=== PATIENT | male | born 1970 | race Asian ===

== ENCOUNTER 2016-07-12 21:21 | Inpatient (IN) | payer MEDICARE, OTHER ==
[~2016-07-12] VITALS: Ht 154.9 cm; Wt 56.6 kg
[~2016-07-12 21:21] MED LIST: CYAN250010 PO; FOLI1 PO; LEVO100 PO; SECU150S SQ
[2016-07-12 22:08] LABS: EOSINOPHILS % (AUTO) 2.1 % (1.0-6.0); HEMATOCRIT 44.7 % (41-53); HEMOGLOBIN 15.1 g/dL (13.5-17.5); LYMPHOCYTES % (AUTO) 29.2 % (22.0-44.0); MEAN CORPUSCULAR HEMOGLOBIN 34.4 pg (26.0-34.0); MEAN CORPUSCULAR HGB CONC 33.8 G/dL (31.0-37.0); MEAN CORPUSCULAR VOLUME 102 fL (80-100); MONOCYTES # (AUTO) 0.5 K/uL (0.1-1.0); MONOCYTES % (AUTO) 7.6 % (2.0-9.0); NEUTROPHILS # (AUTO) 4.1 K/uL (1.8-7.7); NEUTROPHILS % (AUTO) 60.1 % (40.0-70.0); PLATELET COUNT (AUTO) 176 K/uL (150-450); RED BLOOD CELL COUNT(AUTO) 4.38 MIL/uL (4.50-5.90); RED CELL DISTRIBUTION WIDTH 13.4 % (11.5-14.5); WHITE BLOOD COUNT (AUTO) 6.7 K/uL (4.5-11.0)
[2016-07-12 22:16] LABS: ANION GAP 8 mmol/L (8-16); CARBON DIOXIDE 29 mmol/L (22-29); CHLORIDE 102 mmol/L (98-107); CREATININE 1.35 mg/dL (0.60-1.30); GLOMERULAR FILTR. RATE CALC 56 mL/min (>60); POTASSIUM 3.8 mmol/L (3.5-5.1); SODIUM SERUM 139 mmol/L (136-145); UREA NITROGEN, BLOOD 16 mg/dL (7-18)
[2016-07-12 22:19] LABS: PROTHROMBIN TIME 10.4 SEC (9.4-11.6)
[2016-07-12 22:26] LABS: RBC MORPHOLOGY COMMENT ABNORMAL RBC MORPH
[2016-07-12 22:41] LABS: ALANINE AMINOTRANSFERASE 22 U/L (12-78); ALBUMIN 3.3 g/dL (3.4-5.0); ASPARTATE AMINOTRANSFERASE 23 U/L (15-37); B-TYPE NATRIURETIC PEPTIDE 21 pg/mL (0-100); BILIRUBIN,TOTAL 0.5 mg/dL (0.1-1.0); CREATINE KINASE MB 0.7 ng/mL (0-5); CREATINE KINASE, TOTAL 79 U/L (39-308); TOTAL PROTEIN, SERUM 7.8 g/dL (6.4-8.2)
[2016-07-13] VITALS (7 sets, daily range): BP systolic 93–116; BP diastolic 55–86
[2016-07-13] MEDS ORDERED: ACETAMINOPHEN 325 MG TABLET PO PRN (04:15)
[2016-07-13] MEDS ORDERED: ONDANSETRON HCL 4 MG/2 ML VIAL IVP PRN (04:15)
[2016-07-13] MEDS ORDERED: 0.9% SODIUM CHLORIDE 10 ML SYRINGE IVP PRN (04:15)
[2016-07-13] MEDS ORDERED: SESTAMIBI TC99M/UD ISOTOPE 1 EA INJ INJ ONE (09:10)
[2016-07-13] MEDS ORDERED: REGADENOSON 0.4 MG/5 ML PF SYRINGE IVP ONE ×2 (09:13→12:00)
[2016-07-13] MEDS: NITROGLYCERIN 2% (1 GM=INCH) PACKET TP SCH ×2 (10:27→15:56)
[2016-07-13] MEDS: ASPIRIN 81 MG EC TABLET PO SCH (10:27)
[2016-07-13] MEDS: PRAVASTATIN SODIUM 20 MG TABLET PO SCH (10:27)
[2016-07-13] MEDS ORDERED: METOPROLOL SUCCINATE 25 MG ER TABLET PO SCH (21:00)
[2016-07-14 00:05] VITALS: BP 93/54
[2016-07-14] MEDS: HEPARIN SODIUM,PORCINE 5,000 UNITS/ML VIAL SQ SCH ×2 (03:27→09:17)
[2016-07-14 06:02] VITALS: BP 105/58
[2016-07-14 06:29] LABS: BASOPHILS % (AUTO) 0.9 % (0.0-2.0); EOSINOPHILS % (AUTO) 1.9 % (1.0-6.0); HEMATOCRIT 43.8 % (41-53); HEMOGLOBIN 14.7 g/dL (13.5-17.5); LYMPHOCYTES # (AUTO) 2.3 K/uL (1.0-4.8); LYMPHOCYTES % (AUTO) 39.9 % (22.0-44.0); MEAN CORPUSCULAR HEMOGLOBIN 34.4 pg (26.0-34.0); MEAN CORPUSCULAR HGB CONC 33.5 G/dL (31.0-37.0); MEAN CORPUSCULAR VOLUME 103 fL (80-100); MONOCYTES # (AUTO) 0.5 K/uL (0.1-1.0); MONOCYTES % (AUTO) 8.1 % (2.0-9.0); NEUTROPHILS # (AUTO) 2.8 K/uL (1.8-7.7); NEUTROPHILS % (AUTO) 49.2 % (40.0-70.0); PLATELET COUNT (AUTO) 164 K/uL (150-450); RED BLOOD CELL COUNT(AUTO) 4.27 MIL/uL (4.50-5.90); RED CELL DISTRIBUTION WIDTH 13.6 % (11.5-14.5); WHITE BLOOD COUNT (AUTO) 5.7 K/uL (4.5-11.0)
[2016-07-14 06:44] LABS: ALANINE AMINOTRANSFERASE 21 U/L (12-78); ANION GAP 5 mmol/L (8-16); ASPARTATE AMINOTRANSFERASE 21 U/L (15-37); BILIRUBIN,TOTAL 0.6 mg/dL (0.1-1.0); CALCIUM, TOTAL 8.4 mg/dL (8.8-10.5); CARBON DIOXIDE 31 mmol/L (22-29); CHLORIDE 104 mmol/L (98-107); CHOL/HDL RATIO 3.4 (4.2-7.3); CREATININE 1.19 mg/dL (0.60-1.30); GLOMERULAR FILTR. RATE CALC > 60 mL/min (>60); POTASSIUM 3.6 mmol/L (3.5-5.1); SODIUM SERUM 140 mmol/L (136-145); THYROID STIMULATING HORMONE 1.32 uIU/mL (0.36-3.74); TOTAL PROTEIN, SERUM 7.3 g/dL (6.4-8.2); UREA NITROGEN, BLOOD 22 mg/dL (7-18)
[2016-07-14 07:47] VITALS: BP 94/46
[2016-07-14 07:57] LABS: RBC MORPHOLOGY COMMENT ABNORMAL RBC MORPH
[2016-07-14] MEDS: NITROGLYCERIN 2% (1 GM=INCH) PACKET TP SCH ×2 (08:00)
[2016-07-14] MEDS: ASPIRIN 81 MG EC TABLET PO SCH (09:18)
[2016-07-14] MEDS: PRAVASTATIN SODIUM 20 MG TABLET PO SCH (09:18)
[2016-07-14 11:24] VITALS: BP 109/68
== END 2016-07-14 13:20 | disposition home or self-care (01) | DRG 282 ==
LOC: EMS 21:23 → 5N 07-13 05:00
PROVIDERS: ADMIT Family Medicine; ATTEND Family Medicine
DX: I21.4 Non-ST elevation (NSTEMI) myocardial infarction (principal); I20.0 Unstable angina; E03.9 Hypothyroidism, unspecified; Q90.9 Down syndrome, unspecified; I70.0 Atherosclerosis of aorta; L40.9 Psoriasis, unspecified; Z88.0 Allergy status to penicillin; Z79.899 Other long term (current) drug therapy; Z98.890 Other specified postprocedural states; N28.9 Disorder of kidney and ureter, unspecified
CPT/HCPCS: 78452; 83735; 84443; 93005; 93017; 93306; 99285; A9500; J1644; J2785

== ENCOUNTER → 2016-10-12 | Outpatient (CLI) | payer MEDICARE, OTHER ==
[2016-10-12 12:21] LABS: BASOPHILS % (AUTO) 1.1 % (0.0-2.0); EOSINOPHILS % (AUTO) 1.9 % (1.0-6.0); HEMATOCRIT 48.5 % (41-53); HEMOGLOBIN 15.9 g/dL (13.5-17.5); LYMPHOCYTES # (AUTO) 1.9 K/uL (1.0-4.8); LYMPHOCYTES % (AUTO) 35.7 % (22.0-44.0); MEAN CORPUSCULAR HGB CONC 32.7 G/dL (31.0-37.0); MEAN CORPUSCULAR VOLUME 104 fL (80-100); MONOCYTES # (AUTO) 0.4 K/uL (0.1-1.0); MONOCYTES % (AUTO) 6.8 % (2.0-9.0); NEUTROPHILS # (AUTO) 2.9 K/uL (1.8-7.7); NEUTROPHILS % (AUTO) 54.5 % (40.0-70.0); PLATELET COUNT (AUTO) 164 K/uL (150-450); RED BLOOD CELL COUNT(AUTO) 4.67 MIL/uL (4.50-5.90); RED CELL DISTRIBUTION WIDTH 14.2 % (11.5-14.5); WHITE BLOOD COUNT (AUTO) 5.4 K/uL (4.5-11.0)
[2016-10-12 12:38] LABS: HEMOGLOBIN A1C 5.4 % (4.5-6.2)
[2016-10-12 12:46] LABS: ALANINE AMINOTRANSFERASE 22 U/L (12-78); ALBUMIN 3.2 g/dL (3.4-5.0); ANION GAP 3 mmol/L (8-16); ASPARTATE AMINOTRANSFERASE 31 U/L (15-37); BILIRUBIN,TOTAL 0.7 mg/dL (0.1-1.0); CARBON DIOXIDE 33 mmol/L (22-29); CHLORIDE 104 mmol/L (98-107); CREATININE 1.24 mg/dL (0.60-1.30); GLOMERULAR FILTR. RATE CALC > 60 mL/min (>60); SODIUM SERUM 140 mmol/L (136-145); THYROID STIMULATING HORMONE 2.12 uIU/mL (0.36-3.74); TOTAL PROTEIN, SERUM 7.8 g/dL (6.4-8.2); UREA NITROGEN, BLOOD 15 mg/dL (7-18)
[2016-10-12 13:12] LABS: RBC MORPHOLOGY COMMENT ABNORMAL RBC MORPH
== END | disposition home or self-care (01) ==
LOC: LABPV 09:55
PROVIDERS: ATTEND Internal Medicine
DX: E03.9 Hypothyroidism, unspecified (principal); Z79.899 Other long term (current) drug therapy
CPT/HCPCS: 83036; 84443

== ENCOUNTER → 2017-08-27 | Outpatient (CLI) | payer MEDICARE, MEDICAID, OTHER ==
[2017-08-27 16:05] LABS: HEMOGLOBIN A1C 5.2 % (4.5-6.2)
[2017-08-27 16:08] LABS: ALBUMIN 3.7 g/dL (3.4-5.0); BILIRUBIN,TOTAL 0.7 mg/dL (0.1-1.0); CALCIUM, TOTAL 9.3 mg/dL (8.8-10.5); CHOL/HDL RATIO 4.8 (4.2-7.3); CREATININE 1.32 mg/dL (0.60-1.30); THYROID STIMULATING HORMONE 9.44 uIU/mL (0.36-3.74); TOTAL PROTEIN, SERUM 8.6 g/dL (6.4-8.2)
[2017-08-27 16:41] LABS: HEMOGLOBIN 16.4 g/dL (13.5-17.5); LYMPHOCYTES # (AUTO) 2.3 K/uL (1.0-4.8); MEAN CORPUSCULAR VOLUME 101 fL (80-100); NEUTROPHILS # (AUTO) 4.4 K/uL (1.8-7.7)
[2017-08-27 16:47] LABS: BASOPHILS % (AUTO) 1.7 % (0.0-2.0); EOSINOPHILS % (AUTO) 1.8 % (1.0-6.0); LYMPHOCYTES % (AUTO) 30.6 % (22.0-44.0); MEAN CORPUSCULAR HEMOGLOBIN 35.3 pg (26.0-34.0); MEAN CORPUSCULAR HGB CONC 34.9 G/dL (31.0-37.0); MONOCYTES # (AUTO) 0.5 K/uL (0.1-1.0); MONOCYTES % (AUTO) 6.3 % (2.0-9.0); NEUTROPHILS % (AUTO) 59.6 % (40.0-70.0); PLATELET COUNT (AUTO) 159 K/uL (150-450); RED BLOOD CELL COUNT(AUTO) 4.65 MIL/uL (4.50-5.90); RED CELL DISTRIBUTION WIDTH 13.4 % (11.5-14.5)
== END | disposition home or self-care (01) ==
LOC: LABPV 15:14
PROVIDERS: ATTEND Internal Medicine
DX: E03.9 Hypothyroidism, unspecified (principal); E78.5 Hyperlipidemia, unspecified; R73.09 Other abnormal glucose; D64.9 Anemia, unspecified; E55.9 Vitamin D deficiency, unspecified
CPT/HCPCS: 82652; 83036; 84443

== ENCOUNTER 2017-10-30 18:28 | Emergency (ER) | payer MEDICARE, OTHER, MEDICAID ==
[~2017-10-30] VITALS: Ht 152.4 cm; Wt 58.2 kg
[2017-10-30] MEDS ORDERED: MAALOX/LIDOCAINE/NYSTATIN SUSP 5 ML ORAL.SYG PO ONE (20:30)
[2017-10-30 20:58] VITALS: BP 119/65
== END 2017-10-30 21:03 | disposition home or self-care (01) ==
LOC: EMS 18:29
DX: K12.30 Oral mucositis (ulcerative), unspecified (principal); R03.0 Elevated blood-pressure reading, without diagnosis of hypertension; Q90.9 Down syndrome, unspecified; E03.9 Hypothyroidism, unspecified; Z88.0 Allergy status to penicillin; Z79.899 Other long term (current) drug therapy
CPT/HCPCS: 99282

== ENCOUNTER → 2018-06-05 | Outpatient (CLI) | payer MEDICARE, OTHER, MEDICAID ==
[2018-06-05 12:45] LABS: FOLATE SERUM 11.5 ng/mL (5.4-)
[2018-06-06 10:35] LABS: ALPHA-1 (IFE & PEP) 0.2 g/dL (0.0-0.4); IGM (IMMUNOFIXATION) 54 mg/dL (20-172)
== END | disposition home or self-care (01) ==
LOC: LABPV 10:51
PROVIDERS: ATTEND Internal Medicine
DX: E03.9 Hypothyroidism, unspecified (principal); E88.09 Other disorders of plasma-protein metabolism, not elsewhere classified; Z79.899 Other long term (current) drug therapy
CPT/HCPCS: 82607; 82746; 82784; 84155; 84156; 84165; 84166; 84443; 86334; 86335

== ENCOUNTER 2019-10-13 00:13 | Emergency (ER) | payer MEDICARE, OTHER, MEDICAID ==
[~2019-10-13] VITALS: Ht 162.6 cm; Wt 61.4 kg
[~2019-10-13 00:13] MED LIST changes: +FOLI-130 PO; -FOLI1 PO
[2019-10-13 02:52] VITALS: BP 102/52
== END 2019-10-13 04:20 | disposition home or self-care (01) ==
LOC: EMS 00:13
DX: R05 Cough (principal); Z88.0 Allergy status to penicillin; Z20.828 Contact with and (suspected) exposure to other viral communicable diseases
CPT/HCPCS: 87635

== ENCOUNTER 2019-10-28 08:21 | Inpatient (IN) | payer MEDICARE, OTHER, MEDICAID ==
[~2019-10-28] VITALS: Ht 152.4 cm; Wt 59.1 kg
[2019-10-28] MEDS ORDERED: SODIUM CHLORIDE 0.9% 1,000 ML IV ONE ×2 (08:42→16:15)
[2019-10-28] MEDS ORDERED: METOCLOPRAMIDE HCL 5 MG/ML 2 ML VIAL IVP ONE (08:45)
[2019-10-28 09:05] LABS: BASOPHILS % (AUTO) 0.4 % (0.0-2.0); EOSINOPHILS % (AUTO) 0 % (1.0-6.0); HEMATOCRIT 37.7 % (41-53); HEMOGLOBIN 12.1 g/dL (13.5-17.5); LYMPHOCYTES # (AUTO) 2.8 K/uL (1.0-4.8); LYMPHOCYTES % (AUTO) 16.4 % (22.0-44.0); MEAN CORPUSCULAR HEMOGLOBIN 32.6 pg (26.0-34.0); MEAN CORPUSCULAR HGB CONC 32.2 G/dL (31.0-37.0); MEAN CORPUSCULAR VOLUME 101 fL (80-100); MONOCYTES # (AUTO) 0.2 K/uL (0.1-1.0); MONOCYTES % (AUTO) 1.1 % (2.0-9.0); NEUTROPHILS # (AUTO) 14.2 K/uL (1.8-7.7); NEUTROPHILS % (AUTO) 82.1 % (40.0-70.0); PLATELET COUNT (AUTO) 326 K/uL (150-450); RED BLOOD CELL COUNT(AUTO) 3.72 MIL/uL (4.50-5.90); RED CELL DISTRIBUTION WIDTH 13.8 % (11.5-14.5)
[2019-10-28 09:30] LABS: ALBUMIN 2.2 g/dL (3.4-5.0); BILIRUBIN,TOTAL 1.4 mg/dL (0.1-1.0); CALCIUM, TOTAL 9.2 mg/dL (8.8-10.5); POTASSIUM 3.4 mmol/L (3.5-5.1); TOTAL PROTEIN, SERUM 9.2 g/dL (6.4-8.2)
[2019-10-28 09:34] LABS: CREATININE 1.75 mg/dL (0.60-1.30)
[2019-10-28] MEDS ORDERED: IOVERSOL 320 MG/ML 100 ML VIAL ONE (09:34)
[2019-10-28] MEDS ORDERED: SODIUM CHLORIDE 0.9% 0 ML ONE (09:34)
[2019-10-28] MEDS ORDERED: IOVERSOL 350 MG/ML 150 ML VIAL ONE (09:38)
[2019-10-28] MEDS ORDERED: SODIUM CHLORIDE 0.9% 1,650 ML IV ONE (10:29)
[2019-10-28] MEDS ORDERED: CIPROFLOXACIN 400 MG/D5% WATER 200 ML IV ONE (11:00)
[2019-10-28] MEDS ORDERED: MetroNIDAZOLE 500 MG/NACL 100 ML IV ONE (11:00)
[2019-10-28 11:02] LABS: INR 1.3 (0.9-1.1); PROTHROMBIN TIME 13.2 SEC (9.4-11.6)
[2019-10-28 11:07] LABS: C.DIFF GDH ANTIGEN, Stool Negative (Negative); C.DIFF TOXINS A&B, Stool Negative (Negative)
[2019-10-28 12:08] LABS: LACTIC ACID 5.7 mmol/L (0.4-2.0)
[2019-10-28 12:19] LABS: INFLUENZA TYPE A NEGATIVE FOR TYPE A (NEGATIVE); INFLUENZA TYPE B NEGATIVE FOR TYPE B (NEGATIVE)
[2019-10-28] MEDS ORDERED: 0.9% SODIUM CHLORIDE 10 ML SYRINGE IVP PRN (13:15)
[2019-10-28] MEDS ORDERED: ACETAMINOPHEN 325 MG TABLET PO PRN (13:15)
[2019-10-28 13:43] LABS: APPEARANCE,URINE CLOUDY (CLEAR); GLUCOSE, URINE (UA) NEGATIVE (NEGATIVE); KETONES,URINE TRACE mg/dL (NEGATIVE); LEUKOCYTE ESTERASE ,URINE TRACE (NEGATIVE); NITRATE,URINE NEGATIVE (NEGATIVE); PH,URINE 5.5 (5.0-8.0); PROTEIN,URINE POS 1+ (NEGATIVE)
[2019-10-28 13:51] LABS: BILIRUBIN,URINE PRELIM. POSITIVE (NEGATIVE)
[2019-10-28 13:52] LABS: OCCULT BLOOD,URINE MODERATE (NEGATIVE)
[2019-10-28 13:53] LABS: BACTERIA,URINE Many /HPF (None Seen); WBC,URINE 0-2 /HPF (0-5)
[2019-10-28] MEDS ORDERED: NOREPINEPHRINE 4 MG/D5%-WATER 250 ML IV PRN (13:53)
[2019-10-28 13:54] LABS: FINE GRANULAR CASTS,URINE 0-2 /LPF (None Seen); HYALINE CASTS, URINE 0-2 /LPF (None Seen)
[2019-10-28] MEDS ORDERED: ACETAMINOPHEN 1000 MG/ISO-OSM 100 ML IV ONE (14:00)
[2019-10-28 19:02] LABS: CALCIUM, TOTAL 7.5 mg/dL (8.8-10.5); CREATININE 1.66 mg/dL (0.60-1.30); POTASSIUM 4.1 mmol/L (3.5-5.1)
[2019-10-28 19:08] LABS: ALBUMIN 1.4 g/dL (3.4-5.0); BILIRUBIN,TOTAL 1.5 mg/dL (0.1-1.0); TOTAL PROTEIN, SERUM 6.3 g/dL (6.4-8.2)
[2019-10-28 21:00] VITALS: BP 105/68
[2019-10-28] MEDS: NOREPINEPHRINE 4 MG/D5%-WATER 250 ML IV PRN (21:34)
[2019-10-28] MEDS ORDERED: ZOLPIDEM TARTRATE 5 MG TABLET PO PRN (22:30)
[2019-10-28] MEDS ORDERED: MAGNESIUM HYDROXIDE SUSPENSION 30 ML UDCUP PO PRN (22:30)
[2019-10-28] MEDS ORDERED: BISACODYL 10 MG RECTAL RECTAL SUPPOSITORY PR PRN (22:30)
[2019-10-28] MEDS ORDERED: SODIUM CHLORIDE 0.9% 1,600 ML IV ONE (22:45)
[2019-10-28] MEDS: CIPROFLOXACIN 400 MG/D5% WATER 200 ML IV SCH (22:49)
[2019-10-28] MEDS: MetroNIDAZOLE 500 MG/NACL 100 ML IV SCH (23:56)
[2019-10-29] VITALS (8 sets, daily range): BP systolic 80–97; BP diastolic 47–59
[2019-10-29] MEDS: NOREPINEPHRINE 4 MG/D5%-WATER 250 ML IV PRN ×5 (01:29→20:04)
[2019-10-29] MEDS: MORPHINE SULFATE 2 MG/ML SYRINGE IVP PRN ×2 (04:40→19:37)
[2019-10-29 05:57] LABS: BASOPHILS % (AUTO) 0.1 % (0.0-2.0); EOSINOPHILS % (AUTO) 0 % (1.0-6.0); HEMATOCRIT 35.5 % (41-53); HEMOGLOBIN 11.4 g/dL (13.5-17.5); LYMPHOCYTES # (AUTO) 0.7 K/uL (1.0-4.8); LYMPHOCYTES % (AUTO) 3.8 % (22.0-44.0); MEAN CORPUSCULAR HEMOGLOBIN 32.4 pg (26.0-34.0); MEAN CORPUSCULAR HGB CONC 32.1 G/dL (31.0-37.0); MEAN CORPUSCULAR VOLUME 101 fL (80-100); MONOCYTES # (AUTO) 0.3 K/uL (0.1-1.0); MONOCYTES % (AUTO) 1.8 % (2.0-9.0); NEUTROPHILS # (AUTO) 18.1 K/uL (1.8-7.7); PLATELET COUNT (AUTO) 284 K/uL (150-450); RED BLOOD CELL COUNT(AUTO) 3.52 MIL/uL (4.50-5.90); RED CELL DISTRIBUTION WIDTH 13.8 % (11.5-14.5)
[2019-10-29 05:59] LABS: NEUTROPHILS % (AUTO) 94.3 % (40.0-70.0)
[2019-10-29 06:12] LABS: ALANINE AMINOTRANSFERASE 15 U/L (12-78); ALBUMIN 1.3 g/dL (3.4-5.0); ALKALINE PHOSPHATASE 87 U/L (46-116); ANION GAP 9 mmol/L (8-16); ASPARTATE AMINOTRANSFERASE 25 U/L (15-37); BILIRUBIN,TOTAL 0.8 mg/dL (0.1-1.0); CALCIUM, TOTAL 7.3 mg/dL (8.8-10.5); CARBON DIOXIDE 21 mmol/L (22-29); CHLORIDE 107 mmol/L (98-107); CREATININE 1.23 mg/dL (0.60-1.30); GLOMERULAR FILTR. RATE CALC > 60 mL/min (>60); GLUCOSE,RANDOM 163 mg/dL (70-110); POTASSIUM 4.1 mmol/L (3.5-5.1); SODIUM SERUM 137 mmol/L (136-145); UREA NITROGEN, BLOOD 19 mg/dL (7-18)
[2019-10-29] MEDS: LEVOTHYROXINE SODIUM 100 MCG TABLET PO SCH (06:14)
[2019-10-29 06:33] LABS: INR 1.7 (0.9-1.1); PROTHROMBIN TIME 16.8 SEC (9.4-11.6)
[2019-10-29] MEDS: MetroNIDAZOLE 500 MG/NACL 100 ML IV SCH ×3 (07:44→23:07)
[2019-10-29] MEDS: SODIUM CHLORIDE 0.9% 1,000 ML IV SCH ×2 (07:44→17:59)
[2019-10-29] MEDS: DOCUSATE SODIUM 100 MG CAPSULE PO SCH ×2 (07:45→19:34)
[2019-10-29] MEDS ORDERED: CefTRIAXone 1 GM/DEXTROSE 50 ML IV SCH (09:00)
[2019-10-29] MEDS: CIPROFLOXACIN 400 MG/D5% WATER 200 ML IV SCH (11:00)
[2019-10-29] MEDS ORDERED: *CLINICAL-CEFEPIME DOSING CLINICAL ONE (12:00)
[2019-10-29] MEDS ORDERED: ONDANSETRON HCL 4 MG/2 ML VIAL IVP PRN (12:15)
[2019-10-29] MEDS ORDERED: CEFEPIME HCL 2 GM in DEXTROSE 5%-WATER 50 ML IV SCH (13:00)
[2019-10-29] MEDS ORDERED: ACETAMINOPHEN 650 MG/ISO-OSM 65 ML IV PRN (16:00)
[2019-10-29] MEDS ORDERED: ACETAMINOPHEN 1000 MG/ISO-OSM 100 ML IV PRN (16:00)
[2019-10-29 17:44] LABS: C-REACTIVE PROTEIN QUANT 17.27 mg/dL (0.00-0.30); FERRITIN 1517 ng/mL (26-388)
[2019-10-29 17:59] LABS: LACTATE DEHYDROGENASE 802 U/L (85-227)
[2019-10-29] MEDS: HEPARIN SODIUM,PORCINE 5,000 UNITS/ML VIAL SQ SCH (20:06)
[2019-10-29 21:31] LABS: D-DIMER 17.74 mg/L FEU (0.00-0.50)
[2019-10-29] MEDS: LEVOFLOXACIN 750 MG/D5% WATER 150 ML IV SCH (22:27)
[2019-10-29] MEDS ORDERED: SODIUM CHLORIDE 0.9% 250 ML IV ONE (22:31)
[2019-10-30] VITALS (11 sets, daily range): BP systolic 85–115; BP diastolic 25–85
[2019-10-30] MEDS: PHENYLEPHRINE 200 MG/D5%-WATER 250 ML IV PRN (00:17)
[2019-10-30] MEDS: SODIUM CHLORIDE 0.9% 1,000 ML IV SCH ×4 (00:19→20:02)
[2019-10-30] MEDS: MORPHINE SULFATE 2 MG/ML SYRINGE IVP PRN ×3 (00:41→14:25)
[2019-10-30] MEDS: NOREPINEPHRINE 4 MG/D5%-WATER 250 ML IV PRN ×2 (03:29→12:59)
[2019-10-30] MEDS: CEFEPIME HCL 2 GM in DEXTROSE 5%-WATER 50 ML IV SCH ×2 (03:37→13:49)
[2019-10-30] MEDS: LEVOTHYROXINE SODIUM 100 MCG TABLET PO SCH (05:57)
[2019-10-30 06:27] LABS: BASOPHILS % (AUTO) 0.2 % (0.0-2.0); EOSINOPHILS % (AUTO) 0 % (1.0-6.0); HEMATOCRIT 33.3 % (41-53); HEMOGLOBIN 10.7 g/dL (13.5-17.5); LYMPHOCYTES # (AUTO) 0.4 K/uL (1.0-4.8); LYMPHOCYTES % (AUTO) 1.3 % (22.0-44.0); MEAN CORPUSCULAR HEMOGLOBIN 32.5 pg (26.0-34.0); MEAN CORPUSCULAR HGB CONC 32.2 G/dL (31.0-37.0); MEAN CORPUSCULAR VOLUME 101 fL (80-100); MONOCYTES # (AUTO) 0.3 K/uL (0.1-1.0); MONOCYTES % (AUTO) 1.2 % (2.0-9.0); NEUTROPHILS # (AUTO) 27.4 K/uL (1.8-7.7); PLATELET COUNT (AUTO) 234 K/uL (150-450); RED CELL DISTRIBUTION WIDTH 14.1 % (11.5-14.5)
[2019-10-30 06:37] LABS: NEUTROPHILS % (AUTO) 97.3 % (40.0-70.0)
[2019-10-30 07:31] LABS: ALBUMIN 1.2 g/dL (3.4-5.0); BILIRUBIN,TOTAL 0.5 mg/dL (0.1-1.0); C-REACTIVE PROTEIN QUANT 17.98 mg/dL (0.00-0.30); CALCIUM, TOTAL 7.4 mg/dL (8.8-10.5); CREATININE 1.28 mg/dL (0.60-1.30); POTASSIUM 3.9 mmol/L (3.5-5.1); TOTAL PROTEIN, SERUM 5.8 g/dL (6.4-8.2)
[2019-10-30] MEDS: MetroNIDAZOLE 500 MG/NACL 100 ML IV SCH ×3 (07:46→23:15)
[2019-10-30] MEDS: PANTOPRAZOLE SODIUM 40 MG/VIAL IVP SCH (07:46)
[2019-10-30] MEDS: HEPARIN SODIUM,PORCINE 5,000 UNITS/ML VIAL SQ SCH ×3 (07:46→20:11)
[2019-10-30] MEDS: DOCUSATE SODIUM 100 MG CAPSULE PO SCH ×2 (07:47→19:33)
[2019-10-30] MEDS: LEVOFLOXACIN 750 MG/D5% WATER 150 ML IV SCH (22:39)
[2019-10-31] VITALS (8 sets, daily range): BP systolic 88–118; BP diastolic 33–80
[2019-10-31] MEDS: PHENYLEPHRINE 200 MG/D5%-WATER 250 ML IV PRN (01:18)
[2019-10-31] MEDS: CEFEPIME HCL 2 GM in DEXTROSE 5%-WATER 50 ML IV SCH (02:24)
[2019-10-31] MEDS: SODIUM CHLORIDE 0.9% 1,000 ML IV SCH ×4 (03:14→23:00)
[2019-10-31] MEDS: MORPHINE SULFATE 2 MG/ML SYRINGE IVP PRN ×3 (03:29→20:29)
[2019-10-31] MEDS: LEVOTHYROXINE SODIUM 100 MCG TABLET PO SCH (04:53)
[2019-10-31 06:00] LABS: BASOPHILS % (AUTO) 0.1 % (0.0-2.0); EOSINOPHILS % (AUTO) 0.1 % (1.0-6.0); HEMATOCRIT 34.7 % (41-53); HEMOGLOBIN 11.1 g/dL (13.5-17.5); LYMPHOCYTES # (AUTO) 0.5 K/uL (1.0-4.8); LYMPHOCYTES % (AUTO) 2.1 % (22.0-44.0); MEAN CORPUSCULAR HEMOGLOBIN 32.5 pg (26.0-34.0); MEAN CORPUSCULAR VOLUME 102 fL (80-100); MONOCYTES # (AUTO) 0.4 K/uL (0.1-1.0); MONOCYTES % (AUTO) 1.5 % (2.0-9.0); PLATELET COUNT (AUTO) 222 K/uL (150-450); RED BLOOD CELL COUNT(AUTO) 3.42 MIL/uL (4.50-5.90); RED CELL DISTRIBUTION WIDTH 14.2 % (11.5-14.5)
[2019-10-31 06:28] LABS: ALANINE AMINOTRANSFERASE 11 U/L (12-78); ALKALINE PHOSPHATASE 85 U/L (46-116); ANION GAP 8 mmol/L (8-16); ASPARTATE AMINOTRANSFERASE 26 U/L (15-37); BILIRUBIN,TOTAL 0.4 mg/dL (0.1-1.0); CALCIUM, TOTAL 7.5 mg/dL (8.8-10.5); CARBON DIOXIDE 20 mmol/L (22-29); CHLORIDE 111 mmol/L (98-107); CREATININE 1.17 mg/dL (0.60-1.30); GLOMERULAR FILTR. RATE CALC > 60 mL/min (>60); GLUCOSE,RANDOM 80 mg/dL (70-110); POTASSIUM 3.6 mmol/L (3.5-5.1); SODIUM SERUM 139 mmol/L (136-145); TOTAL PROTEIN, SERUM 5.2 g/dL (6.4-8.2); UREA NITROGEN, BLOOD 14 mg/dL (7-18)
[2019-10-31 06:35] LABS: NEUTROPHILS % (AUTO) 96.2 % (40.0-70.0)
[2019-10-31] MEDS ORDERED: LIDOCAINE/PF 1% 30 ML VIAL ONE (07:44)
[2019-10-31] MEDS: HEPARIN SODIUM,PORCINE 5,000 UNITS/ML VIAL SQ SCH ×2 (09:00→20:29)
[2019-10-31] MEDS: DOCUSATE SODIUM 100 MG CAPSULE PO SCH ×2 (09:28→20:29)
[2019-10-31] MEDS: MetroNIDAZOLE 500 MG/NACL 100 ML IV SCH ×2 (09:28→15:35)
[2019-10-31] MEDS: PANTOPRAZOLE SODIUM 40 MG/VIAL IVP SCH (09:29)
[2019-10-31] MEDS: CeFAZolin 2 GM/DEXTROSE 50 ML IV SCH ×2 (10:12→18:01)
[2019-10-31] MEDS: ACETAMINOPHEN 325 MG TABLET PO PRN (11:12)
[2019-10-31] MEDS ORDERED: PROPOFOL 1% 20 ML VIAL IVP ONE (12:00)
[2019-10-31] MEDS ORDERED: 0.9% SODIUM CHLORIDE 10 ML VIAL IVP ONE (12:00)
[2019-10-31] MEDS ORDERED: SODIUM CHLORIDE 0.9% 1,000 ML IV ONE (12:45)
[2019-10-31] MEDS ORDERED: SODIUM CHLORIDE 0.9% 250 ML IV ONE (15:36)
[2019-10-31] MEDS: LEVOFLOXACIN 750 MG/D5% WATER 150 ML IV SCH (23:00)
[2019-10-31] MEDS: ALBUTEROL SULFATE 2.5 MG/0.5 ML NEB SOLUTION NEB PRN (23:00)
[2019-10-31] MEDS: IPRATROPIUM BROMIDE 0.5 MG/2.5 ML NEB SOLUTION NEB PRN (23:00)
[2019-11-01] VITALS: BP 90/48
[2019-11-01] MEDS: MetroNIDAZOLE 500 MG/NACL 100 ML IV SCH ×4 (00:04→23:40)
[2019-11-01] MEDS: HYDROCODONE/ACETAMINOPHEN 5-325 MG TABLET PO PRN ×2 (01:04→15:34)
[2019-11-01] MEDS: CeFAZolin 2 GM/DEXTROSE 50 ML IV SCH ×3 (01:05→18:18)
[2019-11-01 04:00] VITALS: BP 94/48
[2019-11-01] MEDS: SODIUM CHLORIDE 0.9% 1,000 ML IV SCH (05:28)
[2019-11-01 05:54] LABS: BASOPHILS % (AUTO) 0.2 % (0.0-2.0); EOSINOPHILS % (AUTO) 0.3 % (1.0-6.0); HEMATOCRIT 29.5 % (41-53); HEMOGLOBIN 9.5 g/dL (13.5-17.5); LYMPHOCYTES # (AUTO) 0.6 K/uL (1.0-4.8); LYMPHOCYTES % (AUTO) 3.4 % (22.0-44.0); MEAN CORPUSCULAR HEMOGLOBIN 32.3 pg (26.0-34.0); MEAN CORPUSCULAR HGB CONC 32.1 G/dL (31.0-37.0); MEAN CORPUSCULAR VOLUME 101 fL (80-100); MONOCYTES # (AUTO) 0.5 K/uL (0.1-1.0); NEUTROPHILS # (AUTO) 16.7 K/uL (1.8-7.7); PLATELET COUNT (AUTO) 204 K/uL (150-450); RED BLOOD CELL COUNT(AUTO) 2.93 MIL/uL (4.50-5.90); RED CELL DISTRIBUTION WIDTH 14.3 % (11.5-14.5)
[2019-11-01] MEDS: LEVOTHYROXINE SODIUM 100 MCG TABLET PO SCH (06:48)
[2019-11-01 06:59] LABS: ALANINE AMINOTRANSFERASE 10 U/L (12-78); ALKALINE PHOSPHATASE 88 U/L (46-116); ANION GAP 10 mmol/L (8-16); ASPARTATE AMINOTRANSFERASE 36 U/L (15-37); BILIRUBIN,TOTAL 0.3 mg/dL (0.1-1.0); CALCIUM, TOTAL 7.3 mg/dL (8.8-10.5); CARBON DIOXIDE 19 mmol/L (22-29); CHLORIDE 113 mmol/L (98-107); CREATININE 1.08 mg/dL (0.60-1.30); GLOMERULAR FILTR. RATE CALC > 60 mL/min (>60); GLUCOSE,RANDOM 77 mg/dL (70-110); POTASSIUM 3.5 mmol/L (3.5-5.1); SODIUM SERUM 142 mmol/L (136-145); TOTAL PROTEIN, SERUM 4.9 g/dL (6.4-8.2); UREA NITROGEN, BLOOD 16 mg/dL (7-18)
[2019-11-01 07:06] LABS: NEUTROPHILS % (AUTO) 93.1 % (40.0-70.0)
[2019-11-01] MEDS: DOCUSATE SODIUM 100 MG CAPSULE PO SCH ×2 (07:50→22:16)
[2019-11-01] MEDS: PANTOPRAZOLE SODIUM 40 MG/VIAL IVP SCH (07:50)
[2019-11-01] MEDS: HEPARIN SODIUM,PORCINE 5,000 UNITS/ML VIAL SQ SCH ×2 (07:51→22:16)
[2019-11-01 08:00] VITALS: BP 103/53
[2019-11-01] MEDS ORDERED: SODIUM CHLORIDE 0.9% 100 ML ONE (08:17)
[2019-11-01] MEDS ORDERED: FUROSEMIDE 40 MG/4 ML VIAL IVP ONE (11:30)
[2019-11-01 12:00] VITALS: BP 87/52
[2019-11-01 16:00] VITALS: BP 100/58
[2019-11-01 20:01] VITALS: BP 87/44
[2019-11-01] MEDS: LEVOFLOXACIN 750 MG/D5% WATER 150 ML IV SCH (22:17)
[2019-11-02] VITALS (10 sets, daily range): BP systolic 89–134; BP diastolic 52–82
[2019-11-02] MEDS: CeFAZolin 2 GM/DEXTROSE 50 ML IV SCH ×3 (01:48→17:29)
[2019-11-02] MEDS: LEVOTHYROXINE SODIUM 100 MCG TABLET PO SCH (06:30)
[2019-11-02 06:52] LABS: BASOPHILS % (AUTO) 0.2 % (0.0-2.0); EOSINOPHILS % (AUTO) 0.4 % (1.0-6.0); HEMOGLOBIN 10.7 g/dL (13.5-17.5); LYMPHOCYTES # (AUTO) 0.8 K/uL (1.0-4.8); MEAN CORPUSCULAR HEMOGLOBIN 32.4 pg (26.0-34.0); MEAN CORPUSCULAR HGB CONC 32.5 G/dL (31.0-37.0); MEAN CORPUSCULAR VOLUME 100 fL (80-100); MONOCYTES # (AUTO) 0.8 K/uL (0.1-1.0); MONOCYTES % (AUTO) 4.2 % (2.0-9.0); NEUTROPHILS # (AUTO) 17.2 K/uL (1.8-7.7); PLATELET COUNT (AUTO) 221 K/uL (150-450); RED BLOOD CELL COUNT(AUTO) 3.31 MIL/uL (4.50-5.90); RED CELL DISTRIBUTION WIDTH 14.6 % (11.5-14.5)
[2019-11-02 07:10] LABS: NEUTROPHILS % (AUTO) 91.2 % (40.0-70.0)
[2019-11-02 07:43] LABS: BILIRUBIN,TOTAL 0.3 mg/dL (0.1-1.0); C-REACTIVE PROTEIN QUANT 9.57 mg/dL (0.00-0.30); CALCIUM, TOTAL 7.6 mg/dL (8.8-10.5); CREATININE 1.27 mg/dL (0.60-1.30); TOTAL PROTEIN, SERUM 5.3 g/dL (6.4-8.2)
[2019-11-02] MEDS: HEPARIN SODIUM,PORCINE 5,000 UNITS/ML VIAL SQ SCH ×2 (07:48→21:33)
[2019-11-02] MEDS: DOCUSATE SODIUM 100 MG CAPSULE PO SCH ×2 (07:48→21:31)
[2019-11-02] MEDS: MetroNIDAZOLE 500 MG/NACL 100 ML IV SCH ×3 (08:02→23:41)
[2019-11-02] MEDS: PANTOPRAZOLE SODIUM 40 MG/VIAL IVP SCH (09:39)
[2019-11-02] MEDS ORDERED: FUROSEMIDE 20 MG/2 ML VIAL IVP SCH (11:00)
[2019-11-02] MEDS ORDERED: POTASSIUM CHLORIDE 20 MEQ ER TABLET PO ONE (11:15)
[2019-11-02] MEDS ORDERED: FUROSEMIDE 40 MG/4 ML VIAL IVP ONE (11:15)
[2019-11-02] MEDS ORDERED: DEXTROSE 5%-WATER 100 ML IV ONE (12:00)
[2019-11-02] MEDS: POTASSIUM CHL 10 MEQ/WATER 50 ML IV SCH ×2 (12:51→14:01)
[2019-11-02] MEDS: FUROSEMIDE 20 MG/2 ML VIAL IVP SCH (21:35)
[2019-11-02] MEDS: LEVOFLOXACIN 750 MG/D5% WATER 150 ML IV SCH (21:51)
[2019-11-03] MEDS: CeFAZolin 2 GM/DEXTROSE 50 ML IV SCH ×2 (01:51→16:48)
[2019-11-03] MEDS ORDERED: SODIUM CHLORIDE 0.9% 500 ML IV ONE (02:40)
[2019-11-03 03:48] VITALS: BP 100/62
[2019-11-03 07:31] VITALS: BP 102/63
[2019-11-03 07:31] LABS: BASOPHILS % (AUTO) 0.1 % (0.0-2.0); EOSINOPHILS % (AUTO) 0.4 % (1.0-6.0); HEMATOCRIT 31.4 % (41-53); HEMOGLOBIN 10.1 g/dL (13.5-17.5); LYMPHOCYTES # (AUTO) 1.4 K/uL (1.0-4.8); MEAN CORPUSCULAR HEMOGLOBIN 31.3 pg (26.0-34.0); MEAN CORPUSCULAR VOLUME 98 fL (80-100); MONOCYTES # (AUTO) 1.1 K/uL (0.1-1.0); MONOCYTES % (AUTO) 6.2 % (2.0-9.0); NEUTROPHILS # (AUTO) 14.9 K/uL (1.8-7.7); PLATELET COUNT (AUTO) 222 K/uL (150-450); RED BLOOD CELL COUNT(AUTO) 3.22 MIL/uL (4.50-5.90); RED CELL DISTRIBUTION WIDTH 14.1 % (11.5-14.5)
[2019-11-03 07:38] LABS: NEUTROPHILS % (AUTO) 85.3 % (40.0-70.0)
[2019-11-03 08:05] LABS: ALBUMIN 1.1 g/dL (3.4-5.0); BILIRUBIN,TOTAL 0.4 mg/dL (0.1-1.0); CALCIUM, TOTAL 7.4 mg/dL (8.8-10.5); CREATININE 1.3 mg/dL (0.60-1.30); TOTAL PROTEIN, SERUM 5.4 g/dL (6.4-8.2)
[2019-11-03 08:57] LABS: POTASSIUM 2.7 mmol/L (3.5-5.1)
[2019-11-03] MEDS: HEPARIN SODIUM,PORCINE 5,000 UNITS/ML VIAL SQ SCH ×2 (09:00→21:00)
[2019-11-03] MEDS: POTASSIUM CHL 10 MEQ/WATER 50 ML IV PRN ×4 (09:18→12:58)
[2019-11-03 11:01] VITALS: BP 97/57
[2019-11-03 15:13] VITALS: BP 102/55
[2019-11-03] MEDS: PANTOPRAZOLE SODIUM 40 MG/VIAL IVP SCH (16:48)
[2019-11-03] MEDS: DOCUSATE SODIUM 100 MG CAPSULE PO SCH ×2 (16:48→21:00)
[2019-11-03] MEDS: MetroNIDAZOLE 500 MG/NACL 100 ML IV SCH (16:48)
[2019-11-03] MEDS: LEVOTHYROXINE SODIUM 100 MCG TABLET PO SCH (16:48)
[2019-11-03] MEDS: FUROSEMIDE 20 MG/2 ML VIAL IVP SCH ×2 (16:48→21:00)
[2019-11-03] MEDS: ACETAMINOPHEN 325 MG TABLET PO PRN (17:24)
[2019-11-03 20:30] VITALS: BP 112/72
[2019-11-03] MEDS: LEVOFLOXACIN 750 MG/D5% WATER 150 ML IV SCH (23:33)
[2019-11-04] VITALS (7 sets, daily range): BP systolic 91–112; BP diastolic 51–93
[2019-11-04] MEDS: MetroNIDAZOLE 500 MG/NACL 100 ML IV SCH ×3 (01:26→16:04)
[2019-11-04] MEDS: CeFAZolin 2 GM/DEXTROSE 50 ML IV SCH ×3 (02:39→18:47)
[2019-11-04] MEDS: LEVOTHYROXINE SODIUM 100 MCG TABLET PO SCH (05:48)
[2019-11-04 08:08] LABS: HEMATOCRIT 30.4 % (41-53); HEMOGLOBIN 10.3 g/dL (13.5-17.5); MEAN CORPUSCULAR HEMOGLOBIN 32.8 pg (26.0-34.0); MEAN CORPUSCULAR HGB CONC 33.8 G/dL (31.0-37.0); MEAN CORPUSCULAR VOLUME 97 fL (80-100); PLATELET COUNT (AUTO) 200 K/uL (150-450); RED BLOOD CELL COUNT(AUTO) 3.12 MIL/uL (4.50-5.90); RED CELL DISTRIBUTION WIDTH 14.4 % (11.5-14.5)
[2019-11-04] MEDS: HEPARIN SODIUM,PORCINE 5,000 UNITS/ML VIAL SQ SCH ×2 (08:31→20:41)
[2019-11-04] MEDS: DOCUSATE SODIUM 100 MG CAPSULE PO SCH ×2 (08:31→20:41)
[2019-11-04] MEDS: FUROSEMIDE 20 MG/2 ML VIAL IVP SCH ×2 (09:35→20:41)
[2019-11-04] MEDS: PANTOPRAZOLE SODIUM 40 MG/VIAL IVP SCH (09:35)
[2019-11-04 09:38] LABS: ALANINE AMINOTRANSFERASE 3 U/L (12-78); ALBUMIN 1.2 g/dL (3.4-5.0); ALKALINE PHOSPHATASE 126 U/L (46-116); ANION GAP 7 mmol/L (8-16); ASPARTATE AMINOTRANSFERASE 26 U/L (15-37); BILIRUBIN,TOTAL 0.3 mg/dL (0.1-1.0); C-REACTIVE PROTEIN QUANT 4.42 mg/dL (0.00-0.30); CALCIUM, TOTAL 7.3 mg/dL (8.8-10.5); CARBON DIOXIDE 27 mmol/L (22-29); CHLORIDE 111 mmol/L (98-107); FERRITIN 1593 ng/mL (26-388); GLOMERULAR FILTR. RATE CALC > 60 mL/min (>60); GLUCOSE,RANDOM 114 mg/dL (70-110); POTASSIUM 3.1 mmol/L (3.5-5.1); SODIUM SERUM 145 mmol/L (136-145); TOTAL PROTEIN, SERUM 5.8 g/dL (6.4-8.2); UREA NITROGEN, BLOOD 20 mg/dL (7-18)
[2019-11-04 09:39] LABS: BAND NEUTROPHILS % (MANUAL) 10 % (0-5); EOSINOPHILS % (MANUAL) 1 % (1-6); LYMPHOCYTES % (MANUAL) 4 % (22-44); MONOCYTES % (MANUAL) 2 % (2-9); SEGMENTED NEUTROPHILS % 83 % (40-70)
[2019-11-04] MEDS: POTASSIUM CHLORIDE 20 MEQ ER TABLET PO PRN (12:19)
[2019-11-04 14:27] LABS: SPECIMENTYPE,BODY FLUID THORACENTESIS
[2019-11-04 17:58] LABS: APPEARANCE,SPUN,BODY FLUID CLEAR (CLEAR); APPEARANCE,UNSPUN,BODY FLUID SLIGHTLY CLOUDY (CLEAR)
[2019-11-04 17:59] LABS: BASOPHILS,BODY FLUID 0 %; COLOR,BODY FLUID YELLOW (LT YELLOW); EOSINOPHILS,BF (ANAL) 0 %; LYMPHOCYTES,BODY FLUID 51 %; MONOCYTES,BODY FLUID 5 %; NEUTROPHILS,BODY FLUID 44 %; PH, BODY FLUID 7; TOTAL VOLUME,BODY FLUID 500 mL; WBC, BODY FLUID 382 /cu. mm.
[2019-11-04] MEDS: LEVOFLOXACIN 750 MG/D5% WATER 150 ML IV SCH (23:46)
[2019-11-05] MEDS: MetroNIDAZOLE 500 MG/NACL 100 ML IV SCH ×3 (01:21→16:59)
[2019-11-05] MEDS: CeFAZolin 2 GM/DEXTROSE 50 ML IV SCH ×3 (03:07→18:17)
[2019-11-05 04:14] VITALS: BP 100/50
[2019-11-05] MEDS: LEVOTHYROXINE SODIUM 100 MCG TABLET PO SCH (05:20)
[2019-11-05 07:20] VITALS: BP 103/63
[2019-11-05] MEDS: FUROSEMIDE 20 MG/2 ML VIAL IVP SCH ×2 (08:00→22:22)
[2019-11-05] MEDS: PANTOPRAZOLE SODIUM 40 MG/VIAL IVP SCH (08:00)
[2019-11-05] MEDS: DOCUSATE SODIUM 100 MG CAPSULE PO SCH ×2 (08:00→22:22)
[2019-11-05] MEDS: HEPARIN SODIUM,PORCINE 5,000 UNITS/ML VIAL SQ SCH ×2 (08:01→22:22)
[2019-11-05 08:22] LABS: INR 2.4 (0.9-1.1); PROTHROMBIN TIME 24.3 SEC (9.4-11.6)
[2019-11-05] MEDS ORDERED: LIDOCAINE/PF 1% 5 ML VIAL ONE (08:30)
[2019-11-05 08:36] LABS: BASOPHILS % (AUTO) 0.2 % (0.0-2.0); EOSINOPHILS % (AUTO) 0.3 % (1.0-6.0); HEMATOCRIT 32.4 % (41-53); HEMOGLOBIN 10.8 g/dL (13.5-17.5); LYMPHOCYTES # (AUTO) 1.7 K/uL (1.0-4.8); MEAN CORPUSCULAR HEMOGLOBIN 32.7 pg (26.0-34.0); MEAN CORPUSCULAR HGB CONC 33.4 G/dL (31.0-37.0); MEAN CORPUSCULAR VOLUME 98 fL (80-100); MONOCYTES # (AUTO) 0.6 K/uL (0.1-1.0); MONOCYTES % (AUTO) 3.8 % (2.0-9.0); NEUTROPHILS % (AUTO) 84.7 % (40.0-70.0); PLATELET COUNT (AUTO) 180 K/uL (150-450); RED BLOOD CELL COUNT(AUTO) 3.31 MIL/uL (4.50-5.90); RED CELL DISTRIBUTION WIDTH 14.5 % (11.5-14.5)
[2019-11-05 09:03] LABS: ANION GAP 9 mmol/L (8-16); CALCIUM, TOTAL 7.3 mg/dL (8.8-10.5); CARBON DIOXIDE 27 mmol/L (22-29); CHLORIDE 109 mmol/L (98-107); CREATININE 1.18 mg/dL (0.60-1.30); GLOMERULAR FILTR. RATE CALC > 60 mL/min (>60); GLUCOSE,RANDOM 95 mg/dL (70-110); SODIUM SERUM 145 mmol/L (136-145); UREA NITROGEN, BLOOD 20 mg/dL (7-18)
[2019-11-05 12:23] VITALS: BP 100/62
[2019-11-05] MEDS: POTASSIUM CHLORIDE 20 MEQ ER TABLET PO PRN (12:25)
[2019-11-05 13:30] VITALS: BP 101/64
[2019-11-05 16:25] VITALS: BP 103/61
[2019-11-05 20:24] VITALS: BP 105/57
[2019-11-05] MEDS: LEVOFLOXACIN 750 MG/D5% WATER 150 ML IV SCH (22:26)
[2019-11-06] VITALS (7 sets, daily range): BP systolic 93–108; BP diastolic 55–72
[2019-11-06] MEDS: MetroNIDAZOLE 500 MG/NACL 100 ML IV SCH ×3 (01:38→16:21)
[2019-11-06] MEDS: CeFAZolin 2 GM/DEXTROSE 50 ML IV SCH ×3 (03:24→17:58)
[2019-11-06] MEDS ORDERED: KETAMINE HCL 50 MG/ML 10 ML VIAL IVP ONE (06:04)
[2019-11-06] MEDS ORDERED: MIDAZOLAM HCL 2 MG/2 ML VIAL IVP ONE (06:04)
[2019-11-06] MEDS ORDERED: PHENYLEPHRINE HCL 10 MG/ML VIAL IVP ONE (06:04)
[2019-11-06] MEDS ORDERED: ONDANSETRON HCL 4 MG/2 ML VIAL IVP ONE (06:04)
[2019-11-06] MEDS: LEVOTHYROXINE SODIUM 100 MCG TABLET PO SCH (06:40)
[2019-11-06 07:05] LABS: BASOPHILS % (AUTO) 0.4 % (0.0-2.0); EOSINOPHILS % (AUTO) 0.7 % (1.0-6.0); HEMATOCRIT 31.6 % (41-53); HEMOGLOBIN 10.3 g/dL (13.5-17.5); LYMPHOCYTES # (AUTO) 1.2 K/uL (1.0-4.8); LYMPHOCYTES % (AUTO) 7.8 % (22.0-44.0); MEAN CORPUSCULAR HEMOGLOBIN 32.8 pg (26.0-34.0); MEAN CORPUSCULAR HGB CONC 32.7 G/dL (31.0-37.0); MEAN CORPUSCULAR VOLUME 100 fL (80-100); MONOCYTES # (AUTO) 0.6 K/uL (0.1-1.0); MONOCYTES % (AUTO) 4.1 % (2.0-9.0); NEUTROPHILS # (AUTO) 13.3 K/uL (1.8-7.7); PLATELET COUNT (AUTO) 142 K/uL (150-450); RED BLOOD CELL COUNT(AUTO) 3.16 MIL/uL (4.50-5.90)
[2019-11-06 08:24] LABS: ANION GAP 7 mmol/L (8-16); C-REACTIVE PROTEIN QUANT 4.95 mg/dL (0.00-0.30); CALCIUM, TOTAL 7.5 mg/dL (8.8-10.5); CARBON DIOXIDE 29 mmol/L (22-29); CHLORIDE 109 mmol/L (98-107); CREATININE 1.22 mg/dL (0.60-1.30); FERRITIN 1246 ng/mL (26-388); GLOMERULAR FILTR. RATE CALC > 60 mL/min (>60); GLUCOSE,RANDOM 100 mg/dL (70-110); POTASSIUM 3.8 mmol/L (3.5-5.1); SODIUM SERUM 145 mmol/L (136-145); UREA NITROGEN, BLOOD 21 mg/dL (7-18)
[2019-11-06] MEDS: DOCUSATE SODIUM 100 MG CAPSULE PO SCH ×3 (08:39→21:00)
[2019-11-06] MEDS: FUROSEMIDE 20 MG/2 ML VIAL IVP SCH ×2 (08:39→21:00)
[2019-11-06] MEDS: PANTOPRAZOLE SODIUM 40 MG/VIAL IVP SCH (08:39)
[2019-11-06] MEDS: HEPARIN SODIUM,PORCINE 5,000 UNITS/ML VIAL SQ SCH ×2 (08:40→21:11)
[2019-11-06] MEDS: ACETAMINOPHEN 325 MG TABLET PO PRN ×2 (19:33→19:34)
[2019-11-06] MEDS ORDERED: SODIUM CHLORIDE 0.9% 500 ML IV ONE (23:32)
[2019-11-06] MEDS: LEVOFLOXACIN 750 MG/D5% WATER 150 ML IV SCH (23:41)
[2019-11-07] MEDS: MetroNIDAZOLE 500 MG/NACL 100 ML IV SCH ×3 (01:37→16:19)
[2019-11-07] MEDS: CeFAZolin 2 GM/DEXTROSE 50 ML IV SCH ×3 (03:16→17:37)
[2019-11-07 04:17] VITALS: BP 106/67
[2019-11-07] MEDS: LEVOTHYROXINE SODIUM 100 MCG TABLET PO SCH (05:43)
[2019-11-07 07:20] LABS: BASOPHILS % (AUTO) 0.3 % (0.0-2.0); EOSINOPHILS % (AUTO) 0.4 % (1.0-6.0); HEMOGLOBIN 10.5 g/dL (13.5-17.5); LYMPHOCYTES % (AUTO) 6.3 % (22.0-44.0); MEAN CORPUSCULAR HEMOGLOBIN 32.9 pg (26.0-34.0); MEAN CORPUSCULAR HGB CONC 32.9 G/dL (31.0-37.0); MEAN CORPUSCULAR VOLUME 100 fL (80-100); MONOCYTES # (AUTO) 0.6 K/uL (0.1-1.0); MONOCYTES % (AUTO) 3.5 % (2.0-9.0); NEUTROPHILS # (AUTO) 14.6 K/uL (1.8-7.7); PLATELET COUNT (AUTO) 135 K/uL (150-450); RED BLOOD CELL COUNT(AUTO) 3.19 MIL/uL (4.50-5.90); RED CELL DISTRIBUTION WIDTH 14.8 % (11.5-14.5)
[2019-11-07 07:22] VITALS: BP 118/74
[2019-11-07 07:38] LABS: NEUTROPHILS % (AUTO) 89.5 % (40.0-70.0)
[2019-11-07 08:00] LABS: ALANINE AMINOTRANSFERASE 3 U/L (12-78); ALBUMIN 1.3 g/dL (3.4-5.0); ALKALINE PHOSPHATASE 81 U/L (46-116); ANION GAP 7 mmol/L (8-16); ASPARTATE AMINOTRANSFERASE 22 U/L (15-37); BILIRUBIN,TOTAL 0.4 mg/dL (0.1-1.0); C-REACTIVE PROTEIN QUANT 5.12 mg/dL (0.00-0.30); CALCIUM, TOTAL 7.5 mg/dL (8.8-10.5); CARBON DIOXIDE 29 mmol/L (22-29); CHLORIDE 108 mmol/L (98-107); CREATININE 1.22 mg/dL (0.60-1.30); FERRITIN 944 ng/mL (26-388); GLOMERULAR FILTR. RATE CALC > 60 mL/min (>60); GLUCOSE,RANDOM 94 mg/dL (70-110); POTASSIUM 3.3 mmol/L (3.5-5.1); SODIUM SERUM 144 mmol/L (136-145); TOTAL PROTEIN, SERUM 6.2 g/dL (6.4-8.2); UREA NITROGEN, BLOOD 22 mg/dL (7-18)
[2019-11-07] MEDS: DOCUSATE SODIUM 100 MG CAPSULE PO SCH ×3 (09:00→21:45)
[2019-11-07] MEDS: HEPARIN SODIUM,PORCINE 5,000 UNITS/ML VIAL SQ SCH (09:00)
[2019-11-07] MEDS: PANTOPRAZOLE SODIUM 40 MG/VIAL IVP SCH (09:05)
[2019-11-07] MEDS: FUROSEMIDE 20 MG/2 ML VIAL IVP SCH ×2 (09:05→21:45)
[2019-11-07] MEDS: POTASSIUM CHL 10 MEQ/WATER 50 ML IV PRN ×3 (10:54→13:07)
[2019-11-07 11:26] VITALS: BP 102/57
[2019-11-07 15:42] VITALS: BP 96/63
[2019-11-07] MEDS ORDERED: FURO-152 PO (16:46)
[2019-11-07] MEDS ORDERED: HEPA500018 SQ (16:47)
[2019-11-07] MEDS ORDERED: LEVO750P7 IV (16:50)
[2019-11-07] MEDS ORDERED: LEVO100 PO (16:51)
[2019-11-07] MEDS ORDERED: ACET-3207 PO (16:58)
[2019-11-07] MEDS ORDERED: BISA10SU11 PR (16:59)
[2019-11-07] MEDS ORDERED: MOM30 PO (17:00)
[2019-11-07] MEDS ORDERED: LEVO750T68 PO (17:02)
[2019-11-07] MEDS ORDERED: METR500 PO (17:03)
[2019-11-07] MEDS ORDERED: APIX5TAB PO (17:05)
[2019-11-07 17:42] LABS: INR 1.8 (0.9-1.1); PROTHROMBIN TIME 17.7 SEC (9.4-11.6)
[2019-11-07 19:44] VITALS: BP 98/65
[2019-11-07] MEDS: APIXABAN 5 MG TABLET PO SCH (21:45)
[2019-11-07] MEDS: ACETAMINOPHEN 325 MG TABLET PO PRN (22:50)
[2019-11-07 23:09] VITALS: BP 101/59
[2019-11-08] VITALS (7 sets, daily range): BP systolic 95–141; BP diastolic 62–76
[2019-11-08] MEDS: MetroNIDAZOLE 500 MG/NACL 100 ML IV SCH ×4 (00:15→23:42)
[2019-11-08] MEDS: CeFAZolin 2 GM/DEXTROSE 50 ML IV SCH ×3 (01:32→17:43)
[2019-11-08] MEDS: LEVOTHYROXINE SODIUM 100 MCG TABLET PO SCH (06:10)
[2019-11-08 07:26] LABS: BASOPHILS % (AUTO) 0.1 % (0.0-2.0); EOSINOPHILS % (AUTO) 0.1 % (1.0-6.0); HEMATOCRIT 33.2 % (41-53); HEMOGLOBIN 10.9 g/dL (13.5-17.5); LYMPHOCYTES % (AUTO) 6.1 % (22.0-44.0); MEAN CORPUSCULAR HEMOGLOBIN 32.6 pg (26.0-34.0); MEAN CORPUSCULAR HGB CONC 32.8 G/dL (31.0-37.0); MEAN CORPUSCULAR VOLUME 100 fL (80-100); MONOCYTES # (AUTO) 0.8 K/uL (0.1-1.0); MONOCYTES % (AUTO) 4.4 % (2.0-9.0); NEUTROPHILS # (AUTO) 15.4 K/uL (1.8-7.7); PLATELET COUNT (AUTO) 125 K/uL (150-450); RED BLOOD CELL COUNT(AUTO) 3.34 MIL/uL (4.50-5.90)
[2019-11-08 07:35] LABS: NEUTROPHILS % (AUTO) 89.3 % (40.0-70.0)
[2019-11-08] MEDS: APIXABAN 5 MG TABLET PO SCH ×2 (07:55→20:00)
[2019-11-08] MEDS: PANTOPRAZOLE SODIUM 40 MG/VIAL IVP SCH (07:56)
[2019-11-08] MEDS: FUROSEMIDE 20 MG/2 ML VIAL IVP SCH ×2 (07:56→20:01)
[2019-11-08] MEDS: DOCUSATE SODIUM 100 MG CAPSULE PO SCH ×2 (08:04→20:02)
[2019-11-09] MEDS: CeFAZolin 2 GM/DEXTROSE 50 ML IV SCH ×3 (01:55→17:01)
[2019-11-09 03:43] VITALS: BP 107/64
[2019-11-09] MEDS: LEVOTHYROXINE SODIUM 100 MCG TABLET PO SCH (05:45)
[2019-11-09 07:07] VITALS: BP 126/71
[2019-11-09 07:16] LABS: BASOPHILS % (AUTO) 0.4 % (0.0-2.0); EOSINOPHILS % (AUTO) 0.3 % (1.0-6.0); HEMATOCRIT 33.3 % (41-53); LYMPHOCYTES # (AUTO) 1.2 K/uL (1.0-4.8); LYMPHOCYTES % (AUTO) 6.2 % (22.0-44.0); MEAN CORPUSCULAR HEMOGLOBIN 33.2 pg (26.0-34.0); MEAN CORPUSCULAR VOLUME 101 fL (80-100); MONOCYTES # (AUTO) 0.7 K/uL (0.1-1.0); MONOCYTES % (AUTO) 3.8 % (2.0-9.0); NEUTROPHILS # (AUTO) 17.1 K/uL (1.8-7.7); PLATELET COUNT (AUTO) 116 K/uL (150-450); RED BLOOD CELL COUNT(AUTO) 3.31 MIL/uL (4.50-5.90); RED CELL DISTRIBUTION WIDTH 15.2 % (11.5-14.5)
[2019-11-09 07:19] LABS: NEUTROPHILS % (AUTO) 89.3 % (40.0-70.0)
[2019-11-09] MEDS: MetroNIDAZOLE 500 MG/NACL 100 ML IV SCH ×2 (08:16→15:46)
[2019-11-09] MEDS: FUROSEMIDE 20 MG/2 ML VIAL IVP SCH ×2 (08:16→20:23)
[2019-11-09] MEDS: PANTOPRAZOLE SODIUM 40 MG/VIAL IVP SCH (08:16)
[2019-11-09] MEDS: APIXABAN 5 MG TABLET PO SCH ×2 (08:16→20:21)
[2019-11-09] MEDS: DOCUSATE SODIUM 100 MG CAPSULE PO SCH ×2 (08:17→20:23)
[2019-11-09 08:23] LABS: C-REACTIVE PROTEIN QUANT 5.81 mg/dL (0.00-0.30); CALCIUM, TOTAL 7.7 mg/dL (8.8-10.5); CREATININE 1.26 mg/dL (0.60-1.30); POTASSIUM 3.1 mmol/L (3.5-5.1)
[2019-11-09] MEDS: POTASSIUM CHLORIDE 20 MEQ ER TABLET PO PRN (09:30)
[2019-11-09 11:08] VITALS: BP 122/68
[2019-11-09] MEDS: POTASSIUM CHL 10 MEQ/WATER 50 ML IV PRN ×3 (12:21→14:42)
[2019-11-09 16:05] VITALS: BP 105/75
[2019-11-09 19:49] VITALS: BP 105/78
[2019-11-09] MEDS: LEVOFLOXACIN 750 MG TABLET PO SCH (20:21)
[2019-11-10] VITALS (7 sets, daily range): BP systolic 102–119; BP diastolic 62–86
[2019-11-10] MEDS: MetroNIDAZOLE 500 MG/NACL 100 ML IV SCH ×3 (00:07→16:38)
[2019-11-10] MEDS ORDERED: SODIUM CHLORIDE 0.9% 250 ML IV ONE (02:26)
[2019-11-10] MEDS: CeFAZolin 2 GM/DEXTROSE 50 ML IV SCH ×2 (02:29→09:47)
[2019-11-10] MEDS: LEVOTHYROXINE SODIUM 100 MCG TABLET PO SCH (06:01)
[2019-11-10] MEDS: PANTOPRAZOLE SODIUM 40 MG/VIAL IVP SCH (08:26)
[2019-11-10] MEDS: FUROSEMIDE 20 MG/2 ML VIAL IVP SCH ×2 (08:27→20:06)
[2019-11-10] MEDS: APIXABAN 5 MG TABLET PO SCH ×2 (08:27→20:06)
[2019-11-10] MEDS: LEVOFLOXACIN 750 MG TABLET PO SCH (08:27)
[2019-11-10 08:28] LABS: ALBUMIN 1.4 g/dL (3.4-5.0); ALKALINE PHOSPHATASE 67 U/L (46-116); ANION GAP 5 mmol/L (8-16); ASPARTATE AMINOTRANSFERASE 23 U/L (15-37); BILIRUBIN,TOTAL 0.6 mg/dL (0.1-1.0); C-REACTIVE PROTEIN QUANT 4.95 mg/dL (0.00-0.30); CALCIUM, TOTAL 7.5 mg/dL (8.8-10.5); CARBON DIOXIDE 34 mmol/L (22-29); CHLORIDE 105 mmol/L (98-107); CREATININE 1.14 mg/dL (0.60-1.30); FERRITIN 1220 ng/mL (26-388); GLOMERULAR FILTR. RATE CALC > 60 mL/min (>60); GLUCOSE,RANDOM 103 mg/dL (70-110); POTASSIUM 3.3 mmol/L (3.5-5.1); SODIUM SERUM 144 mmol/L (136-145); TOTAL PROTEIN, SERUM 7.1 g/dL (6.4-8.2); UREA NITROGEN, BLOOD 18 mg/dL (7-18)
[2019-11-10] MEDS: DOCUSATE SODIUM 100 MG CAPSULE PO SCH ×2 (08:38→20:06)
[2019-11-10 08:45] LABS: ALANINE AMINOTRANSFERASE 3 U/L (12-78)
[2019-11-10 10:05] LABS: BASOPHILS % (AUTO) 0.8 % (0.0-2.0); EOSINOPHILS % (AUTO) 0.1 % (1.0-6.0); HEMATOCRIT 33.5 % (41-53); HEMOGLOBIN 10.9 g/dL (13.5-17.5); LYMPHOCYTES % (AUTO) 4.9 % (22.0-44.0); MEAN CORPUSCULAR HEMOGLOBIN 33.4 pg (26.0-34.0); MEAN CORPUSCULAR HGB CONC 32.5 G/dL (31.0-37.0); MEAN CORPUSCULAR VOLUME 103 fL (80-100); MONOCYTES # (AUTO) 0.7 K/uL (0.1-1.0); MONOCYTES % (AUTO) 3.4 % (2.0-9.0); NEUTROPHILS # (AUTO) 17.8 K/uL (1.8-7.7); PLATELET COUNT (AUTO) 127 K/uL (150-450); RED BLOOD CELL COUNT(AUTO) 3.26 MIL/uL (4.50-5.90); RED CELL DISTRIBUTION WIDTH 16.5 % (11.5-14.5)
[2019-11-10 10:12] LABS: NEUTROPHILS % (AUTO) 90.8 % (40.0-70.0)
[2019-11-10] MEDS: POTASSIUM CHL 10 MEQ/WATER 50 ML IV PRN ×3 (12:26→15:03)
[2019-11-10] MEDS ORDERED: MetroNIDAZOLE 500 MG TABLET PO SCH (16:00)
[2019-11-11] VITALS (13 sets, daily range): BP systolic 85–103; BP diastolic 57–70
[2019-11-11] MEDS: MetroNIDAZOLE 500 MG/NACL 100 ML IV SCH ×3 (00:14→16:36)
[2019-11-11] MEDS: LEVOTHYROXINE SODIUM 100 MCG TABLET PO SCH (06:27)
[2019-11-11 07:45] LABS: BASOPHILS % (AUTO) 0.1 % (0.0-2.0); EOSINOPHILS % (AUTO) 0 % (1.0-6.0); HEMATOCRIT 32.2 % (41-53); HEMOGLOBIN 10.5 g/dL (13.5-17.5); LYMPHOCYTES % (AUTO) 4.2 % (22.0-44.0); MEAN CORPUSCULAR HEMOGLOBIN 33.5 pg (26.0-34.0); MEAN CORPUSCULAR HGB CONC 32.6 G/dL (31.0-37.0); MEAN CORPUSCULAR VOLUME 103 fL (80-100); MONOCYTES # (AUTO) 0.8 K/uL (0.1-1.0); MONOCYTES % (AUTO) 3.2 % (2.0-9.0); NEUTROPHILS # (AUTO) 22.1 K/uL (1.8-7.7); PLATELET COUNT (AUTO) 140 K/uL (150-450); RED BLOOD CELL COUNT(AUTO) 3.13 MIL/uL (4.50-5.90)
[2019-11-11 07:59] LABS: NEUTROPHILS % (AUTO) 92.5 % (40.0-70.0)
[2019-11-11 08:31] LABS: ALANINE AMINOTRANSFERASE 1 U/L (12-78); ALBUMIN 1.3 g/dL (3.4-5.0); ALKALINE PHOSPHATASE 65 U/L (46-116); ANION GAP 5 mmol/L (8-16); ASPARTATE AMINOTRANSFERASE 22 U/L (15-37); BILIRUBIN,TOTAL 0.7 mg/dL (0.1-1.0); C-REACTIVE PROTEIN QUANT 7.16 mg/dL (0.00-0.30); CALCIUM, TOTAL 7.7 mg/dL (8.8-10.5); CARBON DIOXIDE 33 mmol/L (22-29); CHLORIDE 105 mmol/L (98-107); CREATININE 1.19 mg/dL (0.60-1.30); GLOMERULAR FILTR. RATE CALC > 60 mL/min (>60); GLUCOSE,RANDOM 93 mg/dL (70-110); POTASSIUM 3.7 mmol/L (3.5-5.1); SODIUM SERUM 143 mmol/L (136-145); TOTAL PROTEIN, SERUM 7.2 g/dL (6.4-8.2); UREA NITROGEN, BLOOD 21 mg/dL (7-18)
[2019-11-11] MEDS: FUROSEMIDE 20 MG/2 ML VIAL IVP SCH ×2 (09:00→21:02)
[2019-11-11] MEDS: APIXABAN 5 MG TABLET PO SCH ×2 (09:00→21:01)
[2019-11-11] MEDS: PANTOPRAZOLE SODIUM 40 MG/VIAL IVP SCH (09:13)
[2019-11-11] MEDS: DOCUSATE SODIUM 100 MG CAPSULE PO SCH ×2 (09:14→21:02)
[2019-11-11 09:37] LABS: FERRITIN 1277 ng/mL (26-388)
[2019-11-11] MEDS: LEVOFLOXACIN 750 MG/D5% WATER 150 ML IV SCH (10:20)
[2019-11-11] MEDS: ALBUTEROL SULFATE 2.5 MG/0.5 ML NEB SOLUTION NEB PRN (11:40)
[2019-11-11] MEDS: IPRATROPIUM BROMIDE 0.5 MG/2.5 ML NEB SOLUTION NEB PRN (11:41)
[2019-11-11] MEDS ORDERED: ALBUTEROL SULFATE 2.5 MG/0.5 ML NEB SOLUTION NEB PRN (11:45)
[2019-11-11] MEDS ORDERED: IPRATROPIUM BROMIDE 0.5 MG/2.5 ML NEB SOLUTION NEB PRN (11:45)
[2019-11-11] MEDS ORDERED: SODIUM CHLORIDE 0.9% 1,000 ML IV ONE (12:00)
[2019-11-11] MEDS ORDERED: SODIUM CHLORIDE 0.9% 1,000 ML ONE (12:00)
[2019-11-11] MEDS ORDERED: LIDOCAINE/PF 1% 30 ML VIAL ONE (12:19)
[2019-11-11] MEDS: ALBUTEROL SULFATE 2.5 MG/0.5 ML NEB SOLUTION NEB SCH ×2 (16:16→19:30)
[2019-11-11] MEDS: IPRATROPIUM BROMIDE 0.5 MG/2.5 ML NEB SOLUTION NEB SCH ×2 (16:17→19:30)
[2019-11-11] MEDS ORDERED: SODIUM CHLORIDE 0.9% 250 ML IV ONE ×2 (17:45→17:48)
[2019-11-12] VITALS (7 sets, daily range): BP systolic 71–130; BP diastolic 44–99
[2019-11-12] MEDS ORDERED: SODIUM CHLORIDE 0.9% 500 ML IV ONE (01:00)
[2019-11-12] MEDS: MetroNIDAZOLE 500 MG/NACL 100 ML IV SCH ×3 (01:04→17:54)
[2019-11-12] MEDS: ACETAMINOPHEN 325 MG TABLET PO PRN (01:04)
[2019-11-12] MEDS: IPRATROPIUM BROMIDE 0.5 MG/2.5 ML NEB SOLUTION NEB SCH ×4 (02:35→20:34)
[2019-11-12] MEDS: ALBUTEROL SULFATE 2.5 MG/0.5 ML NEB SOLUTION NEB SCH ×4 (02:35→20:34)
[2019-11-12] MEDS: LEVOTHYROXINE SODIUM 100 MCG TABLET PO SCH (06:47)
[2019-11-12 07:19] LABS: BASOPHILS % (AUTO) 0.2 % (0.0-2.0); EOSINOPHILS % (AUTO) 0 % (1.0-6.0); HEMATOCRIT 31.9 % (41-53); HEMOGLOBIN 10.1 g/dL (13.5-17.5); LYMPHOCYTES # (AUTO) 1.1 K/uL (1.0-4.8); LYMPHOCYTES % (AUTO) 6.3 % (22.0-44.0); MEAN CORPUSCULAR HGB CONC 31.6 G/dL (31.0-37.0); MEAN CORPUSCULAR VOLUME 105 fL (80-100); MONOCYTES # (AUTO) 0.7 K/uL (0.1-1.0); MONOCYTES % (AUTO) 3.9 % (2.0-9.0); NEUTROPHILS # (AUTO) 15.2 K/uL (1.8-7.7); PLATELET COUNT (AUTO) 172 K/uL (150-450); RED BLOOD CELL COUNT(AUTO) 3.05 MIL/uL (4.50-5.90); RED CELL DISTRIBUTION WIDTH 21.2 % (11.5-14.5)
[2019-11-12 08:32] LABS: NEUTROPHILS % (AUTO) 89.6 % (40.0-70.0)
[2019-11-12 08:53] LABS: ALANINE AMINOTRANSFERASE 3 U/L (12-78); ALBUMIN 1.3 g/dL (3.4-5.0); ALKALINE PHOSPHATASE 62 U/L (46-116); ANION GAP 7 mmol/L (8-16); ASPARTATE AMINOTRANSFERASE 26 U/L (15-37); BILIRUBIN,TOTAL 0.6 mg/dL (0.1-1.0); C-REACTIVE PROTEIN QUANT 5.81 mg/dL (0.00-0.30); CALCIUM, TOTAL 7.6 mg/dL (8.8-10.5); CARBON DIOXIDE 31 mmol/L (22-29); CHLORIDE 108 mmol/L (98-107); CREATININE 1.19 mg/dL (0.60-1.30); FERRITIN 1294 ng/mL (26-388); GLOMERULAR FILTR. RATE CALC > 60 mL/min (>60); GLUCOSE,RANDOM 94 mg/dL (70-110); POTASSIUM 3.4 mmol/L (3.5-5.1); SODIUM SERUM 146 mmol/L (136-145); TOTAL PROTEIN, SERUM 7.3 g/dL (6.4-8.2); UREA NITROGEN, BLOOD 24 mg/dL (7-18)
[2019-11-12] MEDS: DOCUSATE SODIUM 100 MG CAPSULE PO SCH ×2 (09:00→21:00)
[2019-11-12] MEDS: FUROSEMIDE 20 MG/2 ML VIAL IVP SCH ×3 (09:00→21:00)
[2019-11-12] MEDS: APIXABAN 5 MG TABLET PO SCH ×2 (09:00→21:00)
[2019-11-12] MEDS: PANTOPRAZOLE SODIUM 40 MG/VIAL IVP SCH (11:11)
[2019-11-12] MEDS: LEVOFLOXACIN 750 MG/D5% WATER 150 ML IV SCH (11:11)
[2019-11-12 12:21] LABS: GLUCOMETER DEV NAME(LOC) PVLAB.13
[2019-11-12 13:16] LABS: ABG PCO2 37 mmHg (35-45); SOURCE, BLOOD GAS ARTERIAL; TEMPERATURE, FAHRENHEIT, BG 98.7 FAHREN (96.0-98.6)
[2019-11-12 13:20] LABS: ABG BASE EXCESS 7.1 mmol/L (-2.0-3.0); ABG HCO3 30.7 mmol/L (22.0-26.0); ABG TOTAL HEMOGLOBIN 11.6 G/dL (12.0-18.0); PO2, ARTERIAL BG 80.5 mmHg (84.0-92.0); SITE, BLOOD GAS LFT BRACHIAL
[2019-11-12 13:21] LABS: ABG CARBOXYHEMOGLOBIN 0.6 % (0.0-1.5); ABG METHEMOGLOBIN 0.2 % (0.0-1.5); ABG OXYGEN CONTENT 15.7 mL/dL (15.0-23.0); ABG OXYGEN SATURATION 96.7 % (95.0-98.0); ABG OXYHEMOGLOBIN 95.9 % (94.0-100.0); O2 DEVICE,BLOOD GAS BIPAP (ROOM AIR)
[2019-11-12 14:18] LABS: GLUCOMETER DEV NAME(LOC) 6S.1; GLUCOSE,POINT OF CARE 85 MG/DL (70-110)
[2019-11-12] MEDS: POTASSIUM CHL 10 MEQ/WATER 50 ML IV PRN ×2 (14:44→16:19)
[2019-11-12] MEDS ORDERED: LORazepam 2 MG/ML VIAL IVP PRN (19:15)
[2019-11-12] MEDS ORDERED: SODIUM CHLORIDE 0.9% 100 ML ONE (20:46)
[2019-11-12] MEDS ORDERED: IOVERSOL 320 MG/ML 100 ML VIAL ONE (20:46)
[2019-11-12] MEDS ORDERED: FUROSEMIDE 20 MG/2 ML VIAL IVP ONE (21:00)
[2019-11-12 23:04] LABS: GLUCOSE,POINT OF CARE 85 MG/DL (70-110)
[2019-11-13] VITALS (13 sets, daily range): BP systolic 88–110; BP diastolic 41–60
[2019-11-13] MEDS: MetroNIDAZOLE 500 MG/NACL 100 ML IV SCH ×3 (01:06→18:38)
[2019-11-13] MEDS: ALBUTEROL SULFATE 2.5 MG/0.5 ML NEB SOLUTION NEB SCH ×4 (03:40→21:11)
[2019-11-13] MEDS: IPRATROPIUM BROMIDE 0.5 MG/2.5 ML NEB SOLUTION NEB SCH ×4 (03:40→21:11)
[2019-11-13] MEDS: LEVOTHYROXINE SODIUM 100 MCG TABLET PO SCH (06:30)
[2019-11-13] MEDS ORDERED: IOVERSOL 350 MG/ML 100 ML VIAL ONE (08:17)
[2019-11-13] MEDS: DOCUSATE SODIUM 100 MG CAPSULE PO SCH ×2 (09:00→21:00)
[2019-11-13] MEDS: APIXABAN 5 MG TABLET PO SCH ×2 (09:00→21:00)
[2019-11-13] MEDS: PANTOPRAZOLE SODIUM 40 MG/VIAL IVP SCH (09:00)
[2019-11-13] MEDS: FUROSEMIDE 20 MG/2 ML VIAL IVP SCH ×2 (09:00→21:00)
[2019-11-13 09:34] LABS: BASOPHILS % (AUTO) 0.2 % (0.0-2.0); EOSINOPHILS % (AUTO) 0 % (1.0-6.0); HEMATOCRIT 28.9 % (41-53); HEMOGLOBIN 9.2 g/dL (13.5-17.5); LYMPHOCYTES % (AUTO) 5.2 % (22.0-44.0); MEAN CORPUSCULAR HEMOGLOBIN 33.8 pg (26.0-34.0); MEAN CORPUSCULAR HGB CONC 31.8 G/dL (31.0-37.0); MEAN CORPUSCULAR VOLUME 106 fL (80-100); MONOCYTES # (AUTO) 0.8 K/uL (0.1-1.0); MONOCYTES % (AUTO) 4.2 % (2.0-9.0); NEUTROPHILS # (AUTO) 17.6 K/uL (1.8-7.7); NEUTROPHILS % (AUTO) 90.4 % (40.0-70.0); PLATELET COUNT (AUTO) 184 K/uL (150-450); RED BLOOD CELL COUNT(AUTO) 2.72 MIL/uL (4.50-5.90)
[2019-11-13 10:24] LABS: C-REACTIVE PROTEIN QUANT 9.81 mg/dL (0.00-0.30)
[2019-11-13] MEDS: LEVOFLOXACIN 750 MG/D5% WATER 150 ML IV SCH (10:42)
[2019-11-13] MEDS ORDERED: PHENYLEPHRINE HCL IN 0.9% NACL 400 MCG/10 ML SYRINGE IVP ONE (11:43)
[2019-11-13] MEDS ORDERED: NOREPINEPHRINE 4 MG/D5%-WATER 250 ML IV ONE (11:43)
[2019-11-13 12:28] LABS: ABG A-A DIFF O2 583.1 mmHg (10-20.0); ABG CARBOXYHEMOGLOBIN 0.1 % (0.0-1.5); ABG HCO3 33.6 mmol/L (22.0-26.0); ABG METHEMOGLOBIN 0.2 % (0.0-1.5); ABG OXYGEN CONTENT 13.4 mL/dL (15.0-23.0); ABG OXYHEMOGLOBIN 95.7 % (94.0-100.0); ABG PCO2 47 mmHg (35-45); ABG PH 7.482 (7.35-7.450); ABG TOTAL HEMOGLOBIN 9.9 G/dL (12.0-18.0); SOURCE, BLOOD GAS ARTERIAL; TEMPERATURE, FAHRENHEIT, BG 99.1 FAHREN (96.0-98.6)
[2019-11-13 12:30] LABS: INSPIRATORY TIME, BG 0.9 SEC; O2 DEVICE,BLOOD GAS BIPAP (ROOM AIR); SITE, BLOOD GAS RT RADIAL
[2019-11-13 13:49] LABS: LACTIC ACID 2.1 mmol/L (0.4-2.0)
[2019-11-13] MEDS: ACETYLCYSTEINE 10% 100 MG/ML 4 ML NEB SOLUTION NEB SCH ×3 (15:00→23:00)
[2019-11-13] MEDS ORDERED: SODIUM CHLORIDE 0.9% 1,000 ML ONE (16:40)
[2019-11-13] MEDS ORDERED: SODIUM CHLORIDE 0.9% 500 ML IV ONE (17:03)
[2019-11-13 17:13] LABS: ABG A-A DIFF O2 571.7 mmHg (10-20.0); ABG CARBOXYHEMOGLOBIN 0.5 % (0.0-1.5); ABG HCO3 31.4 mmol/L (22.0-26.0); ABG METHEMOGLOBIN 0.3 % (0.0-1.5); ABG OXYGEN CONTENT 13.3 mL/dL (15.0-23.0); ABG OXYGEN SATURATION 98.3 % (95.0-98.0); ABG OXYHEMOGLOBIN 97.5 % (94.0-100.0); ABG PCO2 38 mmHg (35-45); ABG PH 7.529 (7.35-7.450); ABG TOTAL HEMOGLOBIN 9.6 G/dL (12.0-18.0); PO2, ARTERIAL BG 103.6 mmHg (84.0-92.0); SOURCE, BLOOD GAS ARTERIAL; TEMPERATURE, FAHRENHEIT, BG 98.6 FAHREN (96.0-98.6)
[2019-11-13 17:14] LABS: O2 DEVICE,BLOOD GAS BIPAP (ROOM AIR); SITE, BLOOD GAS ARTERIAL LINE
[2019-11-13 17:15] LABS: SPONTANEOUS VT, BG 353 ml; VENT MODE, BG BIPAP (ROOM AIR)
[2019-11-13 18:57] LABS: CALCIUM, TOTAL 8.2 mg/dL (8.8-10.5); CREATININE 1.36 mg/dL (0.60-1.30); POTASSIUM 3.9 mmol/L (3.5-5.1)
[2019-11-13 19:04] LABS: ALBUMIN 1.3 g/dL (3.4-5.0); BILIRUBIN,TOTAL 0.8 mg/dL (0.1-1.0); TOTAL PROTEIN, SERUM 7.6 g/dL (6.4-8.2)
[2019-11-13] MEDS ORDERED: *CLINICAL-RX DOSING [ENTER DRUG IN COMMENTS] CLINICAL ONE (19:15)
[2019-11-13] MEDS: PROPOFOL 1000 MG/ISO-OSM 100 ML IV PRN ×3 (20:15→21:12)
[2019-11-13] MEDS: PHENYLEPHRINE 200 MG/D5%-WATER 250 ML IV PRN (20:59)
[2019-11-13] MEDS: CefoTEtan DISOD 2 GM/DEXTROSE 50 ML IV SCH (21:00)
[2019-11-13 21:16] LABS: ABG A-A DIFF O2 607.4 mmHg (10-20.0); ABG BASE EXCESS 7.5 mmol/L (-2.0-3.0); ABG CARBOXYHEMOGLOBIN 0.9 % (0.0-1.5); ABG HCO3 31.6 mmol/L (22.0-26.0); ABG METHEMOGLOBIN 0.3 % (0.0-1.5); ABG OXYGEN CONTENT 14.6 mL/dL (15.0-23.0); ABG OXYGEN SATURATION 95.3 % (95.0-98.0); ABG OXYHEMOGLOBIN 94.2 % (94.0-100.0); ABG PCO2 29 mmHg (35-45); PO2, ARTERIAL BG 71.8 mmHg (84.0-92.0); SOURCE, BLOOD GAS ARTERIAL; TEMPERATURE, FAHRENHEIT, BG 101.7 FAHREN (96.0-98.6)
[2019-11-13 21:17] LABS: ABG PH 7.612 (7.35-7.450); O2 DEVICE,BLOOD GAS VENTILATOR (ROOM AIR); PEEP,BG 5 cm H2O; SITE, BLOOD GAS ARTERIAL LINE; VENT MODE, BG Press. Reg. Vol. Con (ROOM AIR); VT, ABG 400 ml
[2019-11-13 21:45] LABS: GLUCOSE,POINT OF CARE 70 MG/DL (70-110)
[2019-11-13 23:00] LABS: ABG A-A DIFF O2 589.3 mmHg (10-20.0); ABG BASE EXCESS 8.6 mmol/L (-2.0-3.0); ABG CARBOXYHEMOGLOBIN 0.5 % (0.0-1.5); ABG METHEMOGLOBIN 0.3 % (0.0-1.5); ABG OXYGEN CONTENT 14.8 mL/dL (15.0-23.0); ABG OXYGEN SATURATION 96.8 % (95.0-98.0); ABG PCO2 37 mmHg (35-45); ABG PH 7.543 (7.35-7.450); ABG TOTAL HEMOGLOBIN 10.9 G/dL (12.0-18.0); O2 DEVICE,BLOOD GAS VENTILATOR (ROOM AIR); PEEP,BG 7 cm H2O; PO2, ARTERIAL BG 84.7 mmHg (84.0-92.0); SITE, BLOOD GAS ARTERIAL LINE; SOURCE, BLOOD GAS ARTERIAL; VENT MODE, BG Press. Reg. Vol. Con (ROOM AIR); VT, ABG 350 ml
[2019-11-13 23:42] LABS: GLUCOSE,POINT OF CARE 78 MG/DL (70-110)
[2019-11-14] VITALS (28 sets, daily range): BP systolic 84–128; BP diastolic 32–78
[2019-11-14] MEDS: PHENYLEPHRINE 200 MG/D5%-WATER 250 ML IV PRN ×2 (00:15→22:15)
[2019-11-14] MEDS: MetroNIDAZOLE 500 MG/NACL 100 ML IV SCH ×3 (01:09→16:00)
[2019-11-14] MEDS: ACETYLCYSTEINE 10% 100 MG/ML 4 ML NEB SOLUTION NEB SCH ×6 (02:45→23:00)
[2019-11-14] MEDS: IPRATROPIUM BROMIDE 0.5 MG/2.5 ML NEB SOLUTION NEB SCH ×4 (02:45→20:52)
[2019-11-14] MEDS: ALBUTEROL SULFATE 2.5 MG/0.5 ML NEB SOLUTION NEB SCH ×4 (02:45→20:52)
[2019-11-14] MEDS: RINGERS SOLUTION,LACTATED 1,000 ML IV SCH ×2 (02:58→16:00)
[2019-11-14 03:04] LABS: GLUCOSE,POINT OF CARE 89 MG/DL (70-110)
[2019-11-14] MEDS: MORPHINE SULFATE 2 MG/ML SYRINGE IVP PRN (04:12)
[2019-11-14] MEDS: LEVOTHYROXINE SODIUM 100 MCG TABLET PO SCH (06:21)
[2019-11-14 06:28] LABS: GLUCOSE,POINT OF CARE 84 MG/DL (70-110)
[2019-11-14 07:35] LABS: BASOPHILS % (AUTO) 0.3 % (0.0-2.0); EOSINOPHILS % (AUTO) 0 % (1.0-6.0); HEMATOCRIT 26.8 % (41-53); HEMOGLOBIN 8.3 g/dL (13.5-17.5); LYMPHOCYTES # (AUTO) 1.5 K/uL (1.0-4.8); LYMPHOCYTES % (AUTO) 7.2 % (22.0-44.0); MEAN CORPUSCULAR HEMOGLOBIN 33.3 pg (26.0-34.0); MEAN CORPUSCULAR VOLUME 107 fL (80-100); MONOCYTES # (AUTO) 0.6 K/uL (0.1-1.0); MONOCYTES % (AUTO) 2.8 % (2.0-9.0); NEUTROPHILS # (AUTO) 18.4 K/uL (1.8-7.7); PLATELET COUNT (AUTO) 193 K/uL (150-450); RED BLOOD CELL COUNT(AUTO) 2.49 MIL/uL (4.50-5.90); RED CELL DISTRIBUTION WIDTH 25.1 % (11.5-14.5)
[2019-11-14 07:48] LABS: ALBUMIN 1.1 g/dL (3.4-5.0); BILIRUBIN,TOTAL 0.7 mg/dL (0.1-1.0); CALCIUM, TOTAL 7.8 mg/dL (8.8-10.5); CREATININE 1.45 mg/dL (0.60-1.30); POTASSIUM 3.2 mmol/L (3.5-5.1); TOTAL PROTEIN, SERUM 7.1 g/dL (6.4-8.2)
[2019-11-14 08:32] LABS: NEUTROPHILS % (AUTO) 89.7 % (40.0-70.0)
[2019-11-14] MEDS: DOCUSATE SODIUM 100 MG CAPSULE PO SCH ×3 (08:34→21:11)
[2019-11-14] MEDS ORDERED: VASOPRESSIN 40 UNITS in DEXTROSE 5%-WATER 98 ML IV PRN (08:45)
[2019-11-14] MEDS: NOREPINEPHRINE 4 MG/D5%-WATER 250 ML IV PRN ×2 (09:14→22:13)
[2019-11-14] MEDS: FUROSEMIDE 20 MG/2 ML VIAL IVP SCH (09:17)
[2019-11-14] MEDS: PANTOPRAZOLE SODIUM 40 MG/VIAL IVP SCH (09:20)
[2019-11-14] MEDS: LEVOFLOXACIN 750 MG/D5% WATER 150 ML IV SCH (09:21)
[2019-11-14] MEDS: APIXABAN 5 MG TABLET PO SCH ×2 (10:08→21:12)
[2019-11-14] MEDS: CefoTEtan DISOD 2 GM/DEXTROSE 50 ML IV SCH ×2 (10:57→22:13)
[2019-11-14 11:38] LABS: GLUCOSE,POINT OF CARE 107 MG/DL (70-110)
[2019-11-14 13:03] LABS: GLUCOMETER DEV NAME(LOC) PVLAB.13
[2019-11-14] MEDS ORDERED: LORazepam 2 MG/ML VIAL IVP ONE (13:45)
[2019-11-14 16:29] LABS: GLUCOSE,POINT OF CARE 129 MG/DL (70-110)
[2019-11-14] MEDS ORDERED: RINGERS SOLUTION,LACTATED 1,000 ML IV ONE (18:00)
[2019-11-14] MEDS ORDERED: SODIUM CHLORIDE 0.9% 1,000 ML IV ONE (18:15)
[2019-11-14] MEDS: DEXTROSE 5%-0.45% SODIUM CHL 1,000 ML IV SCH (21:11)
[2019-11-14] MEDS: ACETAMINOPHEN 325 MG TABLET PO PRN (21:11)
[2019-11-14 22:07] LABS: CALCIUM, TOTAL 7.3 mg/dL (8.8-10.5); CREATININE 1.32 mg/dL (0.60-1.30)
[2019-11-14 22:08] LABS: POTASSIUM 2.9 mmol/L (3.5-5.1)
[2019-11-14] MEDS ORDERED: SODIUM CHLORIDE 0.9% 250 ML IV ONE (22:21)
[2019-11-14] MEDS: POTASSIUM CHL 10 MEQ/WATER 50 ML IV SCH (22:48)
[2019-11-14 23:00] LABS: APPEARANCE,URINE CLEAR (CLEAR); BILIRUBIN,URINE NEGATIVE (NEGATIVE); GLUCOSE, URINE (UA) NEGATIVE (NEGATIVE); KETONES,URINE NEGATIVE (NEGATIVE); LEUKOCYTE ESTERASE ,URINE NEGATIVE (NEGATIVE); NITRATE,URINE NEGATIVE (NEGATIVE); OCCULT BLOOD,URINE TRACE (NEGATIVE); PROTEIN,URINE POS 1+ (NEGATIVE); UROBILINOGEN,URINE 0.2 mg/dL (<=1.0)
[2019-11-14 23:01] LABS: SODIUM,URINE RANDOM 82 mmol/l (20-110); UREA NITROGEN,URINE RANDOM 589 mg/dL (350-1000)
[2019-11-15] VITALS: BP 115/53
[2019-11-15 00:33] LABS: BACTERIA,URINE Few /HPF (None Seen); RBC,URINE 0-2 /HPF (0-2); WBC,URINE 0-2 /HPF (0-5)
[2019-11-15 00:34] LABS: SQUAMOUS EPITHELIAL CELL,UR Rare /LPF (None Seen)
[2019-11-15] MEDS: POTASSIUM CHL 10 MEQ/WATER 50 ML IV SCH ×3 (00:35→02:01)
[2019-11-15] MEDS: MetroNIDAZOLE 500 MG/NACL 100 ML IV SCH ×3 (00:36→16:03)
[2019-11-15] MEDS: ALBUTEROL SULFATE 2.5 MG/0.5 ML NEB SOLUTION NEB SCH ×4 (02:17→21:58)
[2019-11-15] MEDS: IPRATROPIUM BROMIDE 0.5 MG/2.5 ML NEB SOLUTION NEB SCH ×4 (02:17→21:58)
[2019-11-15] MEDS: ACETYLCYSTEINE 10% 100 MG/ML 4 ML NEB SOLUTION NEB SCH ×6 (03:00→23:00)
[2019-11-15 04:00] VITALS: BP 112/52
[2019-11-15] MEDS: POTASSIUM CHL 10 MEQ/WATER 50 ML IV PRN ×2 (04:06→04:58)
[2019-11-15] MEDS: PROPOFOL 1000 MG/ISO-OSM 100 ML IV PRN ×3 (04:31→23:20)
[2019-11-15] MEDS: NOREPINEPHRINE 4 MG/D5%-WATER 250 ML IV PRN ×3 (04:31→22:28)
[2019-11-15 06:19] LABS: BASOPHILS % (AUTO) 0.3 % (0.0-2.0); EOSINOPHILS % (AUTO) 0.4 % (1.0-6.0); HEMATOCRIT 25.2 % (41-53); HEMOGLOBIN 8.1 g/dL (13.5-17.5); LYMPHOCYTES # (AUTO) 0.8 K/uL (1.0-4.8); LYMPHOCYTES % (AUTO) 3.5 % (22.0-44.0); MEAN CORPUSCULAR HEMOGLOBIN 34.5 pg (26.0-34.0); MEAN CORPUSCULAR VOLUME 108 fL (80-100); MONOCYTES # (AUTO) 0.6 K/uL (0.1-1.0); MONOCYTES % (AUTO) 2.5 % (2.0-9.0); PLATELET COUNT (AUTO) 168 K/uL (150-450); RED BLOOD CELL COUNT(AUTO) 2.33 MIL/uL (4.50-5.90); RED CELL DISTRIBUTION WIDTH 24.9 % (11.5-14.5)
[2019-11-15] MEDS: LEVOTHYROXINE SODIUM 100 MCG TABLET PO SCH (06:52)
[2019-11-15 07:25] LABS: BILIRUBIN,TOTAL 0.5 mg/dL (0.1-1.0); C-REACTIVE PROTEIN QUANT 13.97 mg/dL (0.00-0.30); CALCIUM, TOTAL 7.3 mg/dL (8.8-10.5); CREATININE 1.35 mg/dL (0.60-1.30); MAGNESIUM 1.6 mg/dL (1.80-2.40); PHOSPHORUS 1.9 mg/dL (2.5-4.9); POTASSIUM 3.8 mmol/L (3.5-5.1); TOTAL PROTEIN, SERUM 7.2 g/dL (6.4-8.2)
[2019-11-15 07:26] LABS: NEUTROPHILS % (AUTO) 93.3 % (40.0-70.0)
[2019-11-15 08:00] VITALS: BP 105/51
[2019-11-15] MEDS: APIXABAN 5 MG TABLET PO SCH ×2 (09:00→22:29)
[2019-11-15] MEDS: DEXTROSE 5%-0.45% SODIUM CHL 1,000 ML IV SCH ×2 (09:00→09:24)
[2019-11-15] MEDS: CefoTEtan DISOD 2 GM/DEXTROSE 50 ML IV SCH ×2 (09:23→22:28)
[2019-11-15] MEDS: LEVOFLOXACIN 750 MG/D5% WATER 150 ML IV SCH (09:23)
[2019-11-15] MEDS: PANTOPRAZOLE SODIUM 40 MG/VIAL IVP SCH (09:24)
[2019-11-15] MEDS: DOCUSATE SODIUM 100 MG CAPSULE PO SCH ×2 (09:24→22:28)
[2019-11-15] MEDS ORDERED: SODIUM PHOS,M-BASIC-D-BASIC 30 MMOL in DEXTROSE 5%-WATER 250 ML IV ONE (10:30)
[2019-11-15 12:00] VITALS: BP 98/45
[2019-11-15 12:56] LABS: GLUCOSE,POINT OF CARE 146 MG/DL (70-110)
[2019-11-15 13:33] LABS: GLUCOSE,POINT OF CARE 160 MG/DL (70-110)
[2019-11-15 13:33] LABS: GLUCOSE,POINT OF CARE 187 MG/DL (70-110)
[2019-11-15 15:54] LABS: ABG A-A DIFF O2 181.4 mmHg (10-20.0); ABG BASE EXCESS 0.9 mmol/L (-2.0-3.0); ABG CARBOXYHEMOGLOBIN 0.9 % (0.0-1.5); ABG HCO3 25.4 mmol/L (22.0-26.0); ABG METHEMOGLOBIN 0.3 % (0.0-1.5); ABG OXYGEN CONTENT 11.3 mL/dL (15.0-23.0); ABG OXYGEN SATURATION 93.5 % (95.0-98.0); ABG OXYHEMOGLOBIN 92.4 % (94.0-100.0); ABG PCO2 33 mmHg (35-45); ABG PH 7.488 (7.35-7.450); ABG TOTAL HEMOGLOBIN 8.6 G/dL (12.0-18.0); O2 DEVICE,BLOOD GAS VENTILATOR (ROOM AIR); PO2, ARTERIAL BG 66.2 mmHg (84.0-92.0); SITE, BLOOD GAS ARTERIAL LINE; SOURCE, BLOOD GAS ARTERIAL; TEMPERATURE, FAHRENHEIT, BG 98.6 FAHREN (96.0-98.6); VT, ABG 350 ml
[2019-11-15 15:55] LABS: PEEP,BG 7 cm H2O
[2019-11-15 16:00] VITALS: BP 107/49
[2019-11-15] MEDS: PHENYLEPHRINE 200 MG/D5%-WATER 250 ML IV PRN (16:02)
[2019-11-15 16:04] LABS: CALCIUM, TOTAL 7.2 mg/dL (8.8-10.5); CREATININE 1.32 mg/dL (0.60-1.30); POTASSIUM 3.7 mmol/L (3.5-5.1)
[2019-11-15 20:00] VITALS: BP 118/54
[2019-11-16] VITALS: BP 127/62
[2019-11-16] MEDS: MetroNIDAZOLE 500 MG/NACL 100 ML IV SCH ×2 (00:38→09:09)
[2019-11-16 00:44] LABS: GLUCOMETER DEV NAME(LOC) 4E.2; GLUCOSE,POINT OF CARE 151 MG/DL (70-110)
[2019-11-16] MEDS ORDERED: SODIUM CHLORIDE 0.9% 250 ML IV ONE ×2 (00:45→09:03)
[2019-11-16] MEDS: ACETAMINOPHEN 325 MG TABLET PO PRN (00:46)
[2019-11-16] MEDS: ALBUTEROL SULFATE 2.5 MG/0.5 ML NEB SOLUTION NEB SCH ×4 (02:00→20:10)
[2019-11-16] MEDS: IPRATROPIUM BROMIDE 0.5 MG/2.5 ML NEB SOLUTION NEB SCH ×4 (02:00→20:10)
[2019-11-16] MEDS: ACETYLCYSTEINE 10% 100 MG/ML 4 ML NEB SOLUTION NEB SCH ×6 (03:00→23:37)
[2019-11-16 04:00] VITALS: BP 116/62
[2019-11-16] MEDS: PHENYLEPHRINE 200 MG/D5%-WATER 250 ML IV PRN ×2 (04:35→19:42)
[2019-11-16 06:08] LABS: BASOPHILS % (AUTO) 0.4 % (0.0-2.0); EOSINOPHILS % (AUTO) 0.8 % (1.0-6.0); HEMATOCRIT 24.9 % (41-53); HEMOGLOBIN 8.1 g/dL (13.5-17.5); LYMPHOCYTES # (AUTO) 0.8 K/uL (1.0-4.8); LYMPHOCYTES % (AUTO) 5.2 % (22.0-44.0); MEAN CORPUSCULAR HGB CONC 32.6 G/dL (31.0-37.0); MEAN CORPUSCULAR VOLUME 107 fL (80-100); MONOCYTES # (AUTO) 0.5 K/uL (0.1-1.0); MONOCYTES % (AUTO) 2.8 % (2.0-9.0); NEUTROPHILS # (AUTO) 14.6 K/uL (1.8-7.7); PLATELET COUNT (AUTO) 142 K/uL (150-450); RED BLOOD CELL COUNT(AUTO) 2.32 MIL/uL (4.50-5.90); RED CELL DISTRIBUTION WIDTH 24.9 % (11.5-14.5)
[2019-11-16] MEDS: NOREPINEPHRINE 4 MG/D5%-WATER 250 ML IV PRN ×2 (06:43→23:47)
[2019-11-16] MEDS: LEVOTHYROXINE SODIUM 100 MCG TABLET PO SCH (06:45)
[2019-11-16 07:03] LABS: GLUCOSE,POINT OF CARE 145 MG/DL (70-110)
[2019-11-16 07:56] LABS: NEUTROPHILS % (AUTO) 90.8 % (40.0-70.0)
[2019-11-16 08:00] VITALS: BP 121/60
[2019-11-16 08:00] LABS: ANION GAP 8 mmol/L (8-16); C-REACTIVE PROTEIN QUANT 12.86 mg/dL (0.00-0.30); CALCIUM, TOTAL 7.1 mg/dL (8.8-10.5); CARBON DIOXIDE 25 mmol/L (22-29); CHLORIDE 106 mmol/L (98-107); CREATININE 1.24 mg/dL (0.60-1.30); FERRITIN 930 ng/mL (26-388); GLOMERULAR FILTR. RATE CALC > 60 mL/min (>60); GLUCOSE,RANDOM 165 mg/dL (70-110); LACTATE DEHYDROGENASE 170 U/L (85-227); SODIUM SERUM 139 mmol/L (136-145); UREA NITROGEN, BLOOD 11 mg/dL (7-18)
[2019-11-16 08:49] LABS: PHOSPHORUS 2.4 mg/dL (2.5-4.9)
[2019-11-16] MEDS: CefoTEtan DISOD 2 GM/DEXTROSE 50 ML IV SCH ×2 (09:09→20:52)
[2019-11-16] MEDS: LEVOFLOXACIN 750 MG/D5% WATER 150 ML IV SCH (09:09)
[2019-11-16] MEDS: POTASSIUM CHL 10 MEQ/WATER 50 ML IV PRN ×4 (09:10→12:54)
[2019-11-16] MEDS: APIXABAN 5 MG TABLET PO SCH ×2 (09:10→21:26)
[2019-11-16] MEDS: PANTOPRAZOLE SODIUM 40 MG/VIAL IVP SCH (09:10)
[2019-11-16] MEDS: DOCUSATE SODIUM 100 MG CAPSULE PO SCH ×2 (09:10→21:25)
[2019-11-16] MEDS ORDERED: MAGNESIUM SULFATE 4 GM/WATER 100 ML IV ONE (09:15)
[2019-11-16] MEDS ORDERED: SODIUM PHOS,M-BASIC-D-BASIC 30 MMOL in DEXTROSE 5%-WATER 250 ML IV ONE (09:15)
[2019-11-16] MEDS: PROPOFOL 1000 MG/ISO-OSM 100 ML IV PRN (09:16)
[2019-11-16 12:00] VITALS: BP 122/61
[2019-11-16 12:01] LABS: GLUCOSE,POINT OF CARE 119 MG/DL (70-110)
[2019-11-16] MEDS: DEXTROSE 5%-0.45% SODIUM CHL 1,000 ML IV SCH (12:08)
[2019-11-16 12:10] LABS: ANION GAP 7 mmol/L (8-16); CARBON DIOXIDE 26 mmol/L (22-29); CHLORIDE 111 mmol/L (98-107); CREATININE 1.01 mg/dL (0.60-1.30); GLOMERULAR FILTR. RATE CALC > 60 mL/min (>60); GLUCOSE,RANDOM 127 mg/dL (70-110); POTASSIUM 3.7 mmol/L (3.5-5.1); SODIUM SERUM 144 mmol/L (136-145); UREA NITROGEN, BLOOD 10 mg/dL (7-18)
[2019-11-16] MEDS ORDERED: VANCOMYCIN HCL 750 MG in DEXTROSE 5%-WATER 250 ML IV ONE (14:00)
[2019-11-16] MEDS: CASPOFUNGIN ACETATE 35 MG in SODIUM CHLORIDE 0.9% 100 ML IV SCH (15:13)
[2019-11-16 16:00] VITALS: BP 97/39
[2019-11-16 16:52] LABS: ABG A-A DIFF O2 148.2 mmHg (10-20.0); ABG BASE EXCESS 0.4 mmol/L (-2.0-3.0); ABG HCO3 24.8 mmol/L (22.0-26.0); ABG METHEMOGLOBIN 0.3 % (0.0-1.5); ABG OXYGEN CONTENT 11.9 mL/dL (15.0-23.0); ABG OXYGEN SATURATION 96.6 % (95.0-98.0); ABG OXYHEMOGLOBIN 95.3 % (94.0-100.0); ABG PCO2 42 mmHg (35-45); ABG TOTAL HEMOGLOBIN 8.8 G/dL (12.0-18.0); SOURCE, BLOOD GAS ARTERIAL
[2019-11-16 17:45] LABS: GLUCOMETER DEV NAME(LOC) 4E.2; GLUCOSE,POINT OF CARE 136 MG/DL (70-110)
[2019-11-16 18:16] LABS: O2 DEVICE,BLOOD GAS VENTILATOR (ROOM AIR); PEEP,BG 7 cm H2O; SITE, BLOOD GAS ARTERIAL LINE; SPONTANEOUS VT, BG 353 ml; VT, ABG 350 ml
[2019-11-16 18:37] LABS: GLUCOMETER DEV NAME(LOC) 4E.2; GLUCOSE,POINT OF CARE 129 MG/DL (70-110)
[2019-11-16 20:00] VITALS: BP 110/47
[2019-11-16] MEDS: VANCOMYCIN HCL 500 MG in DEXTROSE 5%-WATER 100 ML IV SCH (20:52)
[2019-11-17] VITALS (13 sets, daily range): BP systolic 103–134; BP diastolic 37–76
[2019-11-17] MEDS: PROPOFOL 1000 MG/ISO-OSM 100 ML IV PRN ×2 (01:42→18:35)
[2019-11-17] MEDS: ALBUTEROL SULFATE 2.5 MG/0.5 ML NEB SOLUTION NEB SCH ×4 (03:06→19:56)
[2019-11-17] MEDS: ACETYLCYSTEINE 10% 100 MG/ML 4 ML NEB SOLUTION NEB SCH ×6 (03:06→23:00)
[2019-11-17] MEDS: IPRATROPIUM BROMIDE 0.5 MG/2.5 ML NEB SOLUTION NEB SCH ×4 (03:06→19:56)
[2019-11-17] MEDS: DEXTROSE 5%-0.45% SODIUM CHL 1,000 ML IV SCH ×2 (04:01→19:16)
[2019-11-17] MEDS: LEVOTHYROXINE SODIUM 100 MCG TABLET PO SCH (05:43)
[2019-11-17 06:02] LABS: GLUCOMETER DEV NAME(LOC) 4E.2; GLUCOSE,POINT OF CARE 118 MG/DL (70-110)
[2019-11-17 06:02] LABS: GLUCOMETER DEV NAME(LOC) 4E.2; GLUCOSE,POINT OF CARE 136 MG/DL (70-110)
[2019-11-17 06:41] LABS: ALANINE AMINOTRANSFERASE 1 U/L (12-78); ALBUMIN 0.8 g/dL (3.4-5.0); ALKALINE PHOSPHATASE 72 U/L (46-116); ANION GAP 7 mmol/L (8-16); ASPARTATE AMINOTRANSFERASE 26 U/L (15-37); BASOPHILS % (AUTO) 0.4 % (0.0-2.0); BILIRUBIN,TOTAL 0.4 mg/dL (0.1-1.0); CALCIUM, TOTAL 7.2 mg/dL (8.8-10.5); CARBON DIOXIDE 26 mmol/L (22-29); CHLORIDE 108 mmol/L (98-107); CREATININE 1.06 mg/dL (0.60-1.30); GLOMERULAR FILTR. RATE CALC > 60 mL/min (>60); GLUCOSE,RANDOM 127 mg/dL (70-110); HEMATOCRIT 21.5 % (41-53); LYMPHOCYTES # (AUTO) 0.9 K/uL (1.0-4.8); LYMPHOCYTES % (AUTO) 6.2 % (22.0-44.0); MEAN CORPUSCULAR HEMOGLOBIN 34.1 pg (26.0-34.0); MEAN CORPUSCULAR HGB CONC 31.8 G/dL (31.0-37.0); MEAN CORPUSCULAR VOLUME 107 fL (80-100); MONOCYTES # (AUTO) 0.6 K/uL (0.1-1.0); MONOCYTES % (AUTO) 4.3 % (2.0-9.0); NEUTROPHILS # (AUTO) 12.7 K/uL (1.8-7.7); PHOSPHORUS 2.6 mg/dL (2.5-4.9); PLATELET COUNT (AUTO) 138 K/uL (150-450); POTASSIUM 3.4 mmol/L (3.5-5.1); RED BLOOD CELL COUNT(AUTO) 2.01 MIL/uL (4.50-5.90); RED CELL DISTRIBUTION WIDTH 24.6 % (11.5-14.5); SODIUM SERUM 141 mmol/L (136-145); TOTAL PROTEIN, SERUM 6.8 g/dL (6.4-8.2); UREA NITROGEN, BLOOD 8 mg/dL (7-18); VANCOMYCIN,RANDOM 12.1 mcg/mL (25.0-50.0)
[2019-11-17 07:21] LABS: HEMOGLOBIN 6.8 g/dL (13.5-17.5); NEUTROPHILS % (AUTO) 88.1 % (40.0-70.0)
[2019-11-17] MEDS: DOCUSATE SODIUM 100 MG CAPSULE PO SCH ×2 (08:15→20:37)
[2019-11-17] MEDS: PANTOPRAZOLE SODIUM 40 MG/VIAL IVP SCH (08:15)
[2019-11-17] MEDS: APIXABAN 5 MG TABLET PO SCH ×2 (08:16→20:37)
[2019-11-17] MEDS: VANCOMYCIN HCL 500 MG in DEXTROSE 5%-WATER 100 ML IV SCH (08:18)
[2019-11-17] MEDS: LEVOFLOXACIN 750 MG/D5% WATER 150 ML IV SCH (09:09)
[2019-11-17] MEDS: CefoTEtan DISOD 2 GM/DEXTROSE 50 ML IV SCH ×2 (09:10→20:37)
[2019-11-17] MEDS: POTASSIUM CHL 10 MEQ/WATER 50 ML IV PRN ×2 (09:56→11:04)
[2019-11-17] MEDS: PHENYLEPHRINE 200 MG/D5%-WATER 250 ML IV PRN (09:57)
[2019-11-17] MEDS: ALBUMIN HUMAN 25%-12.5GM/50ML 50 ML IV SCH ×2 (11:08→17:48)
[2019-11-17] MEDS ORDERED: SODIUM CHLORIDE 0.9% 100 ML ONE (12:53)
[2019-11-17 13:25] LABS: GLUCOMETER DEV NAME(LOC) 4E.2; GLUCOSE,POINT OF CARE 108 MG/DL (70-110)
[2019-11-17] MEDS: CASPOFUNGIN ACETATE 35 MG in SODIUM CHLORIDE 0.9% 100 ML IV SCH (15:12)
[2019-11-17 16:50] LABS: HEMATOCRIT 26.3 % (41-53); HEMOGLOBIN 8.8 g/dL (13.5-17.5)
[2019-11-17] MEDS: NOREPINEPHRINE 4 MG/D5%-WATER 250 ML IV PRN ×2 (17:41→22:48)
[2019-11-17 18:43] LABS: GLUCOSE,POINT OF CARE 106 MG/DL (70-110)
[2019-11-17] MEDS: VANCOMYCIN HCL 1 GM/D5% WATER 200 ML IV SCH (20:16)
[2019-11-18] VITALS: BP 120/52
[2019-11-18] MEDS ORDERED: SODIUM CHLORIDE 0.9% 0 ML IV ONE
[2019-11-18] MEDS ORDERED: SODIUM CHLORIDE 0.9% 250 ML IV ONE ×2 (00:03)
[2019-11-18] MEDS: ALBUTEROL SULFATE 2.5 MG/0.5 ML NEB SOLUTION NEB SCH ×4 (02:50→19:36)
[2019-11-18] MEDS: ACETYLCYSTEINE 10% 100 MG/ML 4 ML NEB SOLUTION NEB SCH ×5 (02:50→19:36)
[2019-11-18] MEDS: IPRATROPIUM BROMIDE 0.5 MG/2.5 ML NEB SOLUTION NEB SCH ×4 (02:50→19:36)
[2019-11-18] MEDS: ALBUMIN HUMAN 25%-12.5GM/50ML 50 ML IV SCH ×3 (03:16→17:30)
[2019-11-18 03:32] LABS: GLUCOSE,POINT OF CARE 127 MG/DL (70-110)
[2019-11-18 04:00] VITALS: BP 122/49
[2019-11-18] MEDS: LEVOTHYROXINE SODIUM 100 MCG TABLET PO SCH (05:41)
[2019-11-18] MEDS: PHENYLEPHRINE 200 MG/D5%-WATER 250 ML IV PRN (06:08)
[2019-11-18 06:28] LABS: BASOPHILS % (AUTO) 0.6 % (0.0-2.0); EOSINOPHILS % (AUTO) 1.1 % (1.0-6.0); HEMOGLOBIN 8.7 g/dL (13.5-17.5); LYMPHOCYTES # (AUTO) 0.7 K/uL (1.0-4.8); LYMPHOCYTES % (AUTO) 6.1 % (22.0-44.0); MEAN CORPUSCULAR HGB CONC 33.5 G/dL (31.0-37.0); MEAN CORPUSCULAR VOLUME 105 fL (80-100); MONOCYTES # (AUTO) 0.6 K/uL (0.1-1.0); MONOCYTES % (AUTO) 5.7 % (2.0-9.0); NEUTROPHILS # (AUTO) 9.7 K/uL (1.8-7.7); PLATELET COUNT (AUTO) 124 K/uL (150-450); RED BLOOD CELL COUNT(AUTO) 2.49 MIL/uL (4.50-5.90); RED CELL DISTRIBUTION WIDTH 24.5 % (11.5-14.5)
[2019-11-18 06:38] LABS: ALBUMIN 1.2 g/dL (3.4-5.0); ALKALINE PHOSPHATASE 57 U/L (46-116); ANION GAP 6 mmol/L (8-16); ASPARTATE AMINOTRANSFERASE 18 U/L (15-37); BILIRUBIN,TOTAL 0.7 mg/dL (0.1-1.0); CALCIUM, TOTAL 7.3 mg/dL (8.8-10.5); CARBON DIOXIDE 26 mmol/L (22-29); CHLORIDE 107 mmol/L (98-107); CREATININE 0.87 mg/dL (0.60-1.30); GLOMERULAR FILTR. RATE CALC > 60 mL/min (>60); GLUCOSE,RANDOM 123 mg/dL (70-110); NEUTROPHILS % (AUTO) 86.5 % (40.0-70.0); POTASSIUM 3.3 mmol/L (3.5-5.1); SODIUM SERUM 139 mmol/L (136-145); TOTAL PROTEIN, SERUM 6.9 g/dL (6.4-8.2); UREA NITROGEN, BLOOD 7 mg/dL (7-18)
[2019-11-18 06:49] LABS: ALANINE AMINOTRANSFERASE 3 U/L (12-78)
[2019-11-18 06:58] LABS: GLUCOSE,POINT OF CARE 115 MG/DL (70-110)
[2019-11-18] MEDS: VANCOMYCIN HCL 1 GM/D5% WATER 200 ML IV SCH (07:29)
[2019-11-18] MEDS: PANTOPRAZOLE SODIUM 40 MG/VIAL IVP SCH (07:29)
[2019-11-18] MEDS: POTASSIUM CHL 10 MEQ/WATER 50 ML IV PRN ×3 (07:30→09:15)
[2019-11-18] MEDS: APIXABAN 5 MG TABLET PO SCH (07:30)
[2019-11-18] MEDS: DOCUSATE SODIUM 100 MG CAPSULE PO SCH (07:30)
[2019-11-18 08:00] VITALS: BP 107/48
[2019-11-18] MEDS: CefoTEtan DISOD 2 GM/DEXTROSE 50 ML IV SCH (08:30)
[2019-11-18] MEDS: LEVOFLOXACIN 750 MG/D5% WATER 150 ML IV SCH (09:19)
[2019-11-18] MEDS: PROPOFOL 1000 MG/ISO-OSM 100 ML IV PRN (09:41)
[2019-11-18] MEDS ORDERED: SODIUM CHLORIDE 0.9% 100 ML ONE (10:10)
[2019-11-18] MEDS ORDERED: SODIUM CHLORIDE 0.9% 300 ML ONE (10:10)
[2019-11-18] MEDS: DEXTROSE 5%-0.45% SODIUM CHL 1,000 ML IV SCH (10:32)
[2019-11-18] MEDS: NOREPINEPHRINE 4 MG/D5%-WATER 250 ML IV PRN (11:04)
[2019-11-18 12:00] VITALS: BP 112/50
[2019-11-18] MEDS: CASPOFUNGIN ACETATE 35 MG in SODIUM CHLORIDE 0.9% 100 ML IV SCH (15:17)
[2019-11-18 16:00] VITALS: BP 102/41
[2019-11-18] MEDS ORDERED: MetroNIDAZOLE 500 MG TABLET PO SCH ×2 (16:00)
[2019-11-18 20:04] VITALS: BP 0/0
== END 2019-11-18 20:04 | disposition expired | DRG 870 ==
LOC: EMS 08:29 → ICU 18:53 → 5S 11-01 19:40 → 6N 11-11 23:00 → 5S 11-12 11:30 → ICUN 11-12 20:00 → UNDODISIN 11-12 20:36 → ICU 11-14 23:10
PROVIDERS: ADMIT Hospitalist; ATTEND Hospitalist
PROC: 0F913ZZ Drainage of Right Lobe Liver, Percutaneous Approach (ICD-10-PCS; 2019-10-31)
PROC: 0W993ZZ Drainage of Right Pleural Cavity, Percutaneous Approach (ICD-10-PCS; 2019-11-04)
PROC: 05HY33Z Insertion of Infusion Device into Upper Vein, Percutaneous Approach (ICD-10-PCS; 2019-11-04)
PROC: B54MZZA Ultrasonography of Right Upper Extremity Veins, Guidance (ICD-10-PCS; 2019-11-04)
PROC: 0F903ZZ Drainage of Liver, Percutaneous Approach (ICD-10-PCS; 2019-11-05)
PROC: 0W9G3ZZ Drainage of Peritoneal Cavity, Percutaneous Approach (ICD-10-PCS; principal; 2019-11-11)
PROC: 5A09357 Assistance with Respiratory Ventilation, Less than 24 Consecutive Hours, Continuous Positive Airway Pressure (ICD-10-PCS; 2019-11-12)
PROC: 5A09357 Assistance with Respiratory Ventilation, Less than 24 Consecutive Hours, Continuous Positive Airway Pressure (ICD-10-PCS; 2019-11-13)
PROC: 5A1955Z Respiratory Ventilation, Greater than 96 Consecutive Hours (ICD-10-PCS; 2019-11-13)
PROC: 0BH17EZ Insertion of Endotracheal Airway into Trachea, Via Natural or Artificial Opening (ICD-10-PCS; 2019-11-13)
PROC: 0B938ZZ Drainage of Right Main Bronchus, Via Natural or Artificial Opening Endoscopic (ICD-10-PCS; 2019-11-14)
PROC: 30233N1 Transfusion of Nonautologous Red Blood Cells into Peripheral Vein, Percutaneous Approach (ICD-10-PCS; 2019-11-17)
DX: A41.59 Other Gram-negative sepsis (principal); R65.21 Severe sepsis with septic shock; K75.0 Abscess of liver; E43 Unspecified severe protein-calorie malnutrition; J96.01 Acute respiratory failure with hypoxia; K65.1 Peritoneal abscess; N39.0 Urinary tract infection, site not specified; E87.2 Acidosis; I82.411 Acute embolism and thrombosis of right femoral vein; J90 Pleural effusion, not elsewhere classified; R18.8 Other ascites; L02.211 Cutaneous abscess of abdominal wall; N17.9 Acute kidney failure, unspecified; J98.11 Atelectasis; K52.9 Noninfective gastroenteritis and colitis, unspecified; Q90.9 Down syndrome, unspecified; E86.0 Dehydration; I50.9 Heart failure, unspecified; Z88.0 Allergy status to penicillin; D69.6 Thrombocytopenia, unspecified; E87.6 Hypokalemia; R16.0 Hepatomegaly, not elsewhere classified; Z68.25 Body mass index [BMI] 25.0-25.9, adult; D64.9 Anemia, unspecified; E83.39 Other disorders of phosphorus metabolism; E83.42 Hypomagnesemia; Z66 Do not resuscitate; L40.9 Psoriasis, unspecified; E03.9 Hypothyroidism, unspecified; Z20.828 Contact with and (suspected) exposure to other viral communicable diseases
CPT/HCPCS: 10022; 31624; 32555; 36245; 36569; 36600; 49405; 51702; 71250; 71260; 72192; 72193; 74150; 74160; 74176; 75989; 76700; 76937; 76942; 82271; 82465; 82570; 82728; 82805; 82945; 83605; 83615; 83735; 83986; 84100; 84132; 84145; 84157; 84300; 84540; 85014; 85018; 85379; 85384; 86140; 86850; 86900; 86901; 86923; 87015; 87040; 87070; 87081; 87086; 87101; 87205; 87206; 87220; 87324; 87449; 87635; 87804; 88108; 89051; 93005; 93306; 93970; 94002; 94003; 94640; 94667; 94799; 95816; 97162; 99242; 99244; C9113; G0378; J0131; J0637; J0690; J0692; J0696; J0744; J1644; J1940; J1956; J2001; J2060; J2250; J2270; J2370; J2405; J2704; J2765; J3370; J3475; J3480; J3490; J7030; J7040; J7050; J7060; J7120; P9016; P9047